=== PATIENT | male | born 1935 | race Caucasian/White ===

== ENCOUNTER → 2020-08-23 08:27 | Outpatient (CLI) | payer MEDICARE, OTHER, SELFPAY ==
--- NOTE | 2020-08-23 08:45 | RAD_ITS ---
CLINICAL HISTORY: PADILLA, S/P ABLATION COMPARISON: None. TECHNIQUE: 1 image(s) of chest sniff test fluoroscopy performed by Physician: Demetri Riojas were submitted for evaluation. FINDINGS: Single spot fluoroscopic radius graph is provided demonstrating cardiac leads median sternotomy and mediastinal clips. The visualized lung bases and upper abdomen are grossly unremarkable. RAD/Chest Sniff Test Fluoro Only IMPRESSION: Single spot fluoroscopic image as above. Please see procedure report for details. Electronically Signed: Tripp Field, at 12:15 EST Tel , Service support ,
== END ==
PROVIDERS: PCP Family Medicine; Referring Provider Internal Medicine Pulmonary Disease; Visit Provider Internal Medicine Pulmonary Disease
DX: R06.00 Dyspnea, unspecified (principal)
CPT/HCPCS: 76000

== ENCOUNTER → 2020-09-01 10:46 | Outpatient (CLI) | payer MEDICARE, OTHER, SELFPAY ==
--- NOTE | 2020-09-01 11:02 | RAD_ITS ---
PROCEDURE: Sniff test. DATE OF EXAMINATION: 09/01/2020. INDICATION: Male, 84 years old. Paralyzed diaphragm. FLUOROSCOPY TIME (if supplied): (17 seconds) minutes/seconds There is paralysis of the left hemidiaphragm. Mild increased markings are seen at the left lung base suggests scarring. RAD/Chest Sniff Test Fluoro Only IMPRESSION: Paralysis of the left hemidiaphragm. Electronically Signed: Brayan Woody, at 12:09 EST , Service support ,
[2020-09-01 11:18] LABS: BNP,B-Type NATRIURETIC PEPTIDE 373.8 pg/mL (0-100)
== END ==
PROVIDERS: PCP Family Medicine; Referring Provider Internal Medicine Pulmonary Disease; Visit Provider Internal Medicine Pulmonary Disease
DX: R06.00 Dyspnea, unspecified (principal)
CPT/HCPCS: 36415; 76000; 83880

== ENCOUNTER → 2020-11-13 09:11 | Outpatient (CLI) | payer MEDICARE, OTHER, SELFPAY ==
--- NOTE | 2020-11-13 09:16 | RAD_ITS ---
STUDY: X-RAY CHEST REASON FOR EXAM: Male, 84 years old. Dyspnea -- hx of pleural effusion TECHNIQUE: PA and lateral views of the chest. COMPARISON: Comparison is made with prior study dated 09/01/2020. FINDINGS: Stable pleural parenchymal changes at the left lung base. Sternal cerclage wires and vascular clips are present from a prior sternotomy and coronary artery bypass graft procedure (CABG). A left-sided dual-chamber pacemaker is seen. Normal mediastinum and rosy. Normal visualized pulmonary arteries. There is atherosclerotic calcification of the aortic arch with tortuosity. There are diffuse degenerative changes of the visualized thoracic spine. Normal visualized ribs, clavicles, and shoulders. There is no demonstrated abnormality of the visualized soft tissue structures of the upper abdomen. RAD/Chest PA and Lateral IMPRESSION: Stable pleural parenchymal changes at the left lung base. Electronically Signed: Brayan Woody MD at 10:27 EST , Service support ,
--- NOTE | 2020-11-13 09:20 | RAD_ITS ---
STUDY: X-RAY CHEST REASON FOR EXAM: Male, 84 years old. Dyspnea -- hx of pleural effusion -- -- LEFT side decubitus TECHNIQUE: Left side decubitus view. COMPARISON: Comparison is made with prior chest radiograph done earlier today. FINDINGS: A left-sided decubitus chest radiograph was obtained. There is blunting of the left costophrenic angle. No evidence of free pleural fluid. RAD/Special CXR (Obl/Decub/A/L) IMPRESSION: Blunting of the left costophrenic angle. No evidence of free pleural fluid. Electronically Signed: Brayan Woody MD at 12:06 EST , Service support ,
--- NOTE | 2020-11-13 09:20 | RAD_ITS ---
STUDY: X-RAY CHEST REASON FOR EXAM: Male, 84 years old. Dyspnea -- hx of pleural effusion -- -- RIGHT side decubitus TECHNIQUE: Right side decubitus. COMPARISON: None. FINDINGS: A [id number] decubitus view was obtained. No evidence of free pleural fluid. RAD/Special CXR (Obl/Decub/A/L) IMPRESSION: No evidence of free pleural fluid. Electronically Signed: Brayan Woody MD at 12:05 EST , Service support ,
[2020-11-13 12:25] LABS: BNP,B-Type NATRIURETIC PEPTIDE 360.9 pg/mL (0-100)
== END ==
PROVIDERS: PCP Family Medicine; Referring Provider Internal Medicine Pulmonary Disease; Visit Provider Internal Medicine Pulmonary Disease
DX: R06.00 Dyspnea, unspecified (principal); I48.91 Unspecified atrial fibrillation; I27.20 Pulmonary hypertension, unspecified
CPT/HCPCS: 36415; 71046; 83880

== ENCOUNTER → 2021-01-08 07:57 | Outpatient (CLI) | payer MEDICARE, OTHER, SELFPAY ==
--- NOTE | 2021-01-08 08:17 | CT_ITS ---
STUDY: CT CHEST WITHOUT CONTRAST REASON FOR EXAM: Male, 85 years old. HX PLEURAL EFFUSION DYSPNEA RADIATION DOSAGE (If Supplied By Facility): CTDIvol = ( 12.82 ) mGy, DLP = ( 483.83 ) mGycm TECHNIQUE: Transaxial imaging was performed without the administration of intravenous contrast material. Individualized dose optimization techniques were used for this CT. COMPARISON: None. FINDINGS: Left subclavian pacemaker. Status post median sternotomy. The lungs are normal. There is no demonstrated pleural abnormality. There is a moderate pericardial effusion. There are calcifications of the coronary arteries. Normal mediastinum. Normal hilar regions. Normal unenhanced pulmonary arteries. Normal aorta arch and descending thoracic aorta. Normal osseous structures. Small amount of ascites surrounding the spleen in the left upper quadrant. CT/Chest without Contrast IMPRESSION: Small amount of ascites surrounding the spleen in the left upper quadrant. No pleural effusion. Electronically Signed: Jean Patel MD at 16:56 EDT Tel , Service support ,
[2021-01-08 08:53] LABS: PSA,Total - Annual Screen 0.04 ng/mL (0.00-4.00)
== END ==
PROVIDERS: PCP Family Medicine; Referring Provider Internal Medicine Pulmonary Disease; Visit Provider Internal Medicine Pulmonary Disease
DX: J90 Pleural effusion, not elsewhere classified (principal); R06.00 Dyspnea, unspecified; Z12.5 Encounter for screening for malignant neoplasm of prostate; I10 Essential (primary) hypertension; I48.91 Unspecified atrial fibrillation
CPT/HCPCS: 36415; 71250; 84153; G0103

== ENCOUNTER 2024-06-14 18:22 | Inpatient (IN) | payer MEDICARE, OTHER, SELFPAY ==
[2024-06-14 17:40] VITALS: BP 92/69; PULSE 80; RESP 18; TEMP 36.3; O2SAT 95
[2024-06-14 18:45] VITALS: BMI 25.5
--- NOTE | 2024-06-14 18:45 | NURSING ---
discussed code status with , pt to be DNRCC. paper signed. placed in Dr Tompkins folder
[2024-06-14 19:50] VITALS: PULSE 86; RESP 18
--- NOTE | 2024-06-14 20:51 | HP.PCM_ITS ---
HPI - General General Date of Admission: 06/14/24 Date of Service: 06/15/24 Chief Complaint: Here for rehabilitation. HPI Narrative MOIRA VILLALOBOS, is a 88 Male who presents with followin06/08/2024 Admit to [facility]. Worsening edema, dyspnea on exertion, orthopnea. Treat for congestive heart failure, consult Palliative care. Lasix 100mg iv given for chf. 06/09/2024 Creatinine 2.53 to 2.32, BNP 11,511. Echo EF 38%. Global LV hypokinesis. Lasix 80mg iv bid for acute HFrEF. 06/10/2024 Lasix 80mg tid for acute HFrEF. Low sodium diet, I's and O's, daily weights. 06/11/2024 Comfortable. Lasix iv for acute HFrEF. Jardiance stopped 2/2 urinary sphincter dysfunction. Plan discharge on Torsemide 100mg bid. 06/12/2024 Feeling well, improved. Lasix iv per cardiology. PT/OT for SNF. 06/13/2024 Lasix 80mg iv q8 for acute HFrEF. Vyndamax for cardiac amyloidosis. Sleep improved, appetite improved. Trazodone, Zyprexa, melatonin for sleep. Lexapro for depression. 06/14/2024 Admit to TCU with debility, here for rehabilitation, strengthening, prior to discharge home with . [facility] Medical History (Updated 06/14/24 @ 21:[address] Alfonso Tompkins MD) History of pacemaker Hypothyroidism Chronic kidney disease, stage 3b Complete heart block Atrial fibrillation Diaphragmatic paralysis Coronary artery disease Localized swelling of both lower legs Acute on chronic HFrEF (heart failure with reduced ejection fraction) Acute respiratory failure with hypoxia Debility Cardiac amyloidosis Home Medications ?Medication ?Instructions ?Recorded ?Last Taken ?Type acetaminophen 500 mg tablet 500 mg PO Q6H PRN fever or pain 06/14/24 Unknown History amiodarone 200 mg tablet 200 mg PO Q24H afib 06/14/24 Unknown History apixaban 2.5 mg tablet (Eliquis) 2.5 mg PO BID afib 06/14/24 Unknown History cholecalciferol (vitamin D3) 25 25 mcg PO DAILY bone health 06/14/24 Unknown History mcg (1,000 unit) capsule coenzyme Q10 200 mg capsule (Co 200 mg PO DAILY joint health 06/14/24 Unknown History Q-10) escitalopram oxalate 10 mg tablet 10 mg PO DAILY depression 06/14/24 Unknown History levothyroxine 125 mcg tablet 125 mcg PO DAILY thyroid 06/14/24 Unknown History magnesium oxide 400 mg PO DAILY suppleme 06/14/24 Unknown History melatonin 3 mg tablet 3 mg PO QHS sleep 06/14/24 Unknown History miconazole 2 % powder-tolnaftate 1 1 ea topical BID.TCU skin 06/14/24 Unknown History % liquid topical kit midodrine 5 mg tablet 5 mg PO TID syncope/BP 06/14/24 Unknown History nitroglycerin 0.4 mg sublingual 0.4 mg sublingual Q5M PRN angina 06/14/24 Unknown History tablet (Nitrostat) olanzapine 5 mg tablet 5 mg PO QHS depression 06/14/24 Unknown History potassium chloride 10 mEq 10 meq PO DAILY supplement 06/14/24 Unknown History tablet,extended release (Klor-Con) tafamidis 61 mg capsule (Vyndamax) 61 mg PO DAILY cardiomyopathy 06/14/24 Unknown History tamsulosin 0.4 mg capsule (Flomax) 0.4 mg PO DAILY prostate 06/14/24 Unknown History torsemide 100 mg tablet 100 mg PO BID heart 06/14/24 Unknown History trazodone 100 mg tablet 100 mg PO QHS sleep 06/14/24 Unknown History Allergy/AdvReac Type Severity Reaction Status Date / Time hydromorphone (From Dilaudid) Allergy Severe Other Verified 06/14/24 18:52 ketorolac Allergy Severe Anaphylaxis Verified 06/14/24 18:52 Family History (Updated 06/14/24 @ 20:[address] Alfonso Tompkins MD) Mother Myocardial infarction Lung cancer Brother CVA (cerebral vascular accident) Diabetes CAD (coronary artery disease) Prostate cancer Surgical History (Updated 06/14/24 @ 21:[address] Alfonso Tompkins MD) History of implantation of artificial sphincter History of coronary artery bypass graft x 3 Social History (Updated 06/14/24 @ 21:[address] Alfonso Tompkins MD) household members: spouse Smoking Status: Never smoker alcohol intake: current alcohol intake frequency: 0-2 drinks per day Alcohol type: beer and wine substance use type: does not use ROS Constitutional Constitutional: Reports weakness; Denies chills, fever(s) or weight gain ENT HEENT: Denies headache(s), nasal congestion or nasal discharge Cardiovascular Cardiovascular: Denies chest pain or palpitations Respiratory/Chest Respiratory/Chest: Denies cough, excessive phlegm production or shortness of breath with exertion Gastrointestinal Gastrointestinal: Denies abdominal pain, nausea or vomiting Genitourinary Genitourinary: Denies dysuria Musculoskeletal Musculoskeletal: Denies joint pain or joint swelling Integumentary Integumentary: Denies rash or wounds Neurologic Neurologic: Reports confusion; Denies focal weakness, numbness or tingling Psychiatric Psychiatric: Denies anxiety, auditory hallucinations, depression, homicidal ideation or suicidal ideation Vital Signs Vital Signs Vital Signs: 06/14/24 17:40 06/14/24 19:50 Temperature 97.4 F L Temperature Source Temporal Pulse Rate 80 86 Pulse Rhythm Regular Pulse Strength Normal (2+) Respiratory Rate 18 18 Respiratory Effort Normal Non-Labored Respiratory Depth Normal Respiratory Pattern Normal Blood Pressure 92/69 Blood Pressure Mean 76 Blood Pressure Source Monitor Blood Pressure Position Semi-Fowlers Blood Pressure Location Right Arm Pulse Ox 95 Oxygen Delivery Method Room Air Room Air Physical Exam Const alert General Appearance: cooperative HEENT normocephalic Eyes PERRL and EOMs intact bilaterally Neck supple, no JVD and no carotid bruits Resp normal respiratory effort, normal air movement and clear to auscultation bilaterally Cardio regular rate and regular rhythm GI normal to inspection, nondistended, normoactive bowel sounds, non-tender and non-distended Extremity normal capillary refill General Extremity: Negative for edema Skin no rashes or lesions noted General Skin Exam: no breakdown Psych affect normal Appearance: appropriate Results Lab / Micro Data 06/15/24 05:12 06/15/24 05:12 Assessment & Plan Assessment/Plan (1) Debility: (2) Acute respiratory failure with hypoxia: (3) Acute on chronic HFrEF (heart failure with reduced ejection fraction): (4) Localized swelling of both lower legs: (5) Cardiac amyloidosis: (6) Coronary artery disease: (7) Diaphragmatic paralysis: (8) Atrial fibrillation: (9) Complete heart block: (10) Chronic kidney disease, stage 3b: (11) Hypothyroidism: PLAN: Plan 88 year old male with below past medical history hospitalized for acute respiratory failure with hypoxia 2/2 acute on chronic hfref, complicated by acute kidney injury, admitted to TCU with debility, here for rehabilitation, strengthening, prior to discharge home with . * Debility - PT/OT. * Cognition - ST. * Pain - Tylenol 1000mg q6 prn pain (1-10). * Bowel - senna/colace 1 tablet bid, Magnesium citrate 300ml po daily prn. * Adult immunization - Administer pneumonia vaccine, covid vaccine, flu vaccine as appropriate. * DVT prophylaxis - Eliquis 2.5mg bid. * Atrial fibrillation - Amiodarone 200mg daily, Eliquis 2.5mg bid. * Vitamin D deficiency - D3 25mcg daily. * Depression - Lexapro 10mg daily. * Hypothyroidism - Levothyroxine 125mcg daily. * Hypomagnesemia - Magnesium chloride 128mg daily. * Insomnia - Melatonin 3mg qhs, Zyprexa 5mg qhs, Trazodone 100mg qhs, stable chronic residential use, GDR not recommended. * Orthostatic hypotension - Midodrine 5mg tidcm. * Coronary artery disease - NTG 0.4mg sl q5m prn. * Hypokalemia - KCL 10meq daily. * Cardiac amyloidosis - Vyndamax 61mg daily. * BPH - Tamsulosin 0.4mg daily. * HFrEF - Torsemide 100mg bid.
[2024-06-14] MEDS: OLANZapine 5 MG/TAB TAB.RAPDIS PO (22:31)
[2024-06-14] MEDS: APIXABAN 2.5 MG TABLET (WCH) PO (22:31)
[2024-06-14] MEDS: Senna/Docusate Sodium 1 Tablet PO (22:31)
[2024-06-14] MEDS: traZODone 100 MG Tablet PO (22:31)
[2024-06-14] MEDS: MELATONIN 3 MG TABLET PO (22:31)
[2024-06-14] MEDS: Midodrine HCl 5 MG Tablet PO (22:32)
[2024-06-14 22:35] VITALS: BP 102/68; PULSE 80
[2024-06-14] MEDS: Acetaminophen 500 MG Tablet 1000 MG PO (22:41)
[2024-06-15 06:05] LABS: Absolute Lymphocyte Count 0.67 X10^3/uL (0.83-4.51); Absolute Neutrophil Count 6.3 X10^3/uL (2.0-7.7); Basophil# 0.04 X10^3/uL; Basophil% 0.5 % (0-1); Eosinophil# 0.07 X10^3/uL; Eosinophils% 0.9 % (0-5); Hemoglobin 11.7 g/dL (13.0-16.5); Lymphocyte # 0.67 X10^3/ul (0.83-4.51); Lymphocyte % 8.5 % (19-41); Mean Corp Hgb Conc 32.5 g/dL (32-36); Mean Corpuscular Hgb 33.2 pg (27.0-32.0); Mean Corpuscular Volume 102.3 fL (80-94); Monocyte# 0.56 X10^3/uL; Monocyte% 7.1 % (0-10); NRBC Flagged by Analyzer 0 % (0-5); Neutrophil # 6.33 X10^3/uL (2.7-7.7); Neutrophil % 80.7 % (47-70); POSITIVE COUNT YES; POSITIVE MORPHOLOGY YES; Platelet Count 98 K/mm3 (150-450); RBC Distribution Width CV 17.9 % (11.6-14.6); RBC Distribution Width SD 67.4 fl (35.1-43.9); Red Blood Count 3.52 M/mm3 (4.6-6.2); White Blood Count 7.9 K/mm3 (4.4-11.0)
[2024-06-15 06:07] LABS: Differential Indicated SCAN CRITERIA MET
[2024-06-15] MEDS: Levothyroxine 125 MCG Tablet PO (06:14)
[2024-06-15 06:34] LABS: Anion Gap 8 (5-15); BUN 59 mg/dL (7-18); BUN/Creat Ratio 28.5 RATIO (10-20); Calcium,Total 8.7 mg/dL (8.5-10.1); Chloride 99 mmol/L (98-107); Creatinine, Serum 2.07 mg/dL (0.70-1.30); EST Glomerular Filtration Rate 32 mL/min (>60); Est Glom Filt Rate - Afr Amer 39 mL/min (>60); Glucose 149 mg/dL (74-106); Potassium 3.9 mmol/L (3.5-5.1); Sodium Level 133 mmol/L (136-145)
[2024-06-15] MEDS: Potassium Chloride Oral Tablet 10 MEQ PO (07:51)
[2024-06-15] MEDS: Midodrine HCl 5 MG Tablet PO ×3 (07:51→17:20)
[2024-06-15] MEDS: Magnesium Chloride 64 MG Delay Rel.Tablet 128 MG PO (07:52)
[2024-06-15] MEDS: APIXABAN 2.5 MG TABLET (WCH) PO ×2 (07:52→21:52)
[2024-06-15] MEDS: Amiodarone 200 MG Tablet PO (07:52)
[2024-06-15] MEDS: Escitalopram Oxalate 10 MG Tablet PO (07:52)
[2024-06-15] MEDS: Senna/Docusate Sodium 1 Tablet PO ×2 (07:53→21:52)
[2024-06-15] MEDS: Cholecalciferol (VIT D3) 25 MCG TABLET (1,000 UNITS) PO (07:53)
[2024-06-15] MEDS: Magnesium Citrate 300 ML PO (07:54)
[2024-06-15 08:31] LABS: Differential Comment SCANNED
[2024-06-15 08:32] LABS: Anisocytosis 2+; Macrocytosis 1+; Microcytosis 1+; Platelet Estimate SLT DEC (ADEQ)
[2024-06-15 08:38] VITALS: BMI 25.5
[2024-06-15] MEDS: Tuberculin,Purif.prot.deriv. 50 TU/ML Vial 0.1 ML ID (10:30)
[2024-06-15 12:49] LABS: Mucous, Urine 0 SEEN /hpf (<or=2+); Red Blood Cells-Urine 0 SEEN /hpf (0-5)
[2024-06-15 13:04] LABS: Color, Urine Yellow (Yellow); Glucose, Dipstick Normal (Normal); Ketone-Dipstick Negative (Negative); Leukocyte Esterase-Dipstick 25 /ul (Negative); Nitrite-Dipstick Negative (Negative); Occult Blood-Urine Negative /ul (Negative); Protein-Dipstick 30 mg/dl (Negative); Specific Gravity, Urine 1.015 (1.002-1.030); Urine Bilirubin Dipstick Negative (Negative); Urine Clarity Clear (Clear); Urine Urobilinogen Normal (Normal)
[2024-06-15 13:07] VITALS: BP 106/64; PULSE 76; RESP 16; TEMP 36.4; O2SAT 97
[2024-06-15 13:24] LABS: Bacteria 1+ /hpf (None Seen); Squamous Epithelial Cells - UA 0-5 SEEN /hpf (0-5); White Blood Cells 0-5 SEEN /hpf (0-5)
[2024-06-15 13:33] VITALS: BP 105/63; PULSE 80
--- NOTE | 2024-06-15 13:59 | CASEMGMT ---
Social Work SW attempted to meet with pt but pt agitated, wincing, and preferred not to be asked questions. SW phoned and will be arriving shortly. SW met with without pt present. shared pt's medical history and PLOF. Prior to - February, pt was mod I, no AD, no cognitive issues. Per , mid-February, pt became weaker, medical decline, and April 01, drove pt to [facility] Main ER for fluid retention, which began his medical decline, delirium with each change in environment. explained pt was golfing 2-3x/week about two years ago, but when he was struggling to play, d/t his competitiveness, pt sold his golf clubs. Which stated she felt was a mistake. Pt started to decline physically, decreased activity levels and increased in SOB. pt became severely depressed, which pt admitted, per . PCP started pt on antidepressant. is hopeful pt will participate in therapy, begin to improve, and delirium will resolve. Though, is also realistic that pt may not recover, and hospice would be appropriate. At this current LOF, stated she cannot care for pt at home, and pt would need SNF placement. prefers [facility], but did not have beds available at the time of DC, though, stated she is very happy pt admitted to TCU as it is evident [we] provide great care. SW explained this worker will continue to follow for support and discharge planning assistance. appreciative. Betzy Amezquita, ROSE SALINASW
--- NOTE | 2024-06-15 14:21 | CASEMGMT ---
Social Work SW requested provide copies of advanced directives Betzy Amezquita, [employer] PATHOLOGY COLLECTOR
--- NOTE | 2024-06-15 15:17 | NURSING ---
Addendum entered by Carina Brito 06/15/24 15:47: Met resistance when trying to insert enema tubing, resident clenching up and unable to tolerate more than a small amount of enema being administered. Had to stop and position him for comfort. Will update MD. Original Note: Patient up and down to [facility] multiple times during the day, keeps saying he needs to have BM. Drank some mag citrate but only had small BM, no relief. Updated Dr. Tompkins, order for SSE.
--- NOTE | 2024-06-15 16:24 | PCM.PN.DRR ---
Documented by User: William Goodwin 06/15/24 16:52 TCU RX Drug Regimen Review Subjective/Objective Subjective/Objective: Subjective: TCU admission note. 88 year old male with below past medical history hospitalized for acute respiratory failure with hypoxia 2/2 acute on chronic hfref, complicated by acute kidney injury, admitted to TCU with debility, here for rehabilitation, strengthening, prior to discharge home with . Objective: Allergies hydromorphone (From Dilaudid) Allergy (Severe, Verified 06/14/24 18:52) Other tachycardia, diaphoresis, flushing, intense anxiety ketorolac Allergy (Severe, Verified 06/14/24 18:52) Anaphylaxis Current Medications Generic Name Dose Route Start Last Admin Trade Name Freq PRN Reason Stop Dose Admin Acetaminophen 1,000 mg 06/14/24 21:11 06/14/24 22:41 Acetaminophen 500 Mg Tablet PO 1,000 mg Q6H PRN PRN Administration Pain Score 1-10 Amiodarone HCl 200 mg 06/15/24 10:00 06/15/24 07:52 Amiodarone 200 Mg Tablet PO 200 mg DAILY SAMMY Administration Apixaban 2.5 mg 06/14/24 22:00 06/15/24 07:52 Apixaban 2.5 Mg Tablet (Wch) PO 2.5 mg BID SAMMY Administration Cholecalciferol 25 mcg 06/15/24 10:00 06/15/24 07:53 Cholecalciferol (Vit D3) 25 Mcg Tablet (1,000 Units) PO 25 mcg DAILY SAMMY Administration Escitalopram Oxalate 10 mg 06/15/24 10:00 06/15/24 07:52 Escitalopram Oxalate 10 Mg Tablet PO 10 mg DAILY SAMMY Administration Levothyroxine Sodium 125 mcg 06/15/24 06:00 06/15/24 06:14 Levothyroxine 125 Mcg Tablet PO 125 mcg DAILY@0600 SAMMY Administration Magnesium Chloride 128 mg 06/15/24 10:00 06/15/24 07:52 Magnesium Chloride 64 Mg Delay Rel.Tablet PO 128 mg DAILY SAMMY Administration Magnesium Citrate 300 ml 06/14/24 21:11 06/15/24 07:54 Magnesium Citrate 300 Ml PO 300 ml DAILY PRN Administration CONSTIPATION Melatonin 3 mg 06/14/24 22:00 06/14/24 22:31 Melatonin 3 Mg Tablet PO 3 mg QHS SAMMY Administration Midodrine 5 mg 06/14/24 22:00 06/15/24 13:29 Midodrine Hcl 5 Mg Tablet PO 5 mg TIDCM [facility] Administration Nitroglycerin 0.4 mg 06/14/24 19:20 Nitroglycerin (Inpatient Use) 0.4 Mg Tab.Subl SL Q5M PRN CARDIAC/CHEST PAIN Non-Formulary Medication 1 each 06/14/24 22:00 Miconazole-Tolnaftate TOPICAL BID.TCU [facility] Non-Formulary Medication 100 mg 06/14/24 22:00 Torsemide PO BID SAMMY Olanzapine 5 mg 06/14/24 22:00 06/14/24 22:31 Olanzapine 5 Mg/Tab Tab.Rapdis PO 5 mg QHS [facility] Administration Potassium Chloride 10 meq 06/15/24 08:00 06/15/24 07:51 Potassium Chloride Oral Tablet 10 Meq PO 10 meq DAILYCM [facility] Administration Senna/Docusate Sodium 1 tablet 06/14/24 22:00 06/15/24 07:53 Senna/Docusate Sodium 1 Tablet PO 1 tablet BID [facility] Administration Tamsulosin HCl 0.4 mg 06/15/24 17:30 Tamsulosin Hcl 0.4 Mg Capsule PO DAILY@1730 [facility] Trazodone HCl 100 mg 06/14/24 22:00 06/14/24 22:31 Trazodone 100 Mg Tablet PO 100 mg QHS [facility] Administration Tuberculin PPD 0.1 ml 06/22/24 10:00 Tuberculin,Purif.Prot.Deriv. 50 Tu/Ml Vial ID 06/22/24 10:01 X1 ONE Problem List Hypothyroidism (Acute) Chronic kidney disease, stage 3b (Acute) Complete heart block (Acute) Atrial fibrillation (Acute) Diaphragmatic paralysis (Acute) Coronary artery disease (Acute) Cardiac amyloidosis (Acute) Localized swelling of both lower legs (Acute) Acute on chronic HFrEF (heart failure with reduced ejection fraction) (Chronic) Acute respiratory failure with hypoxia (Acute) Debility (Acute) Vital Signs Temp Pulse Resp BP Pulse Ox O2 Del Method 97.6 F L 80 16 105/63 97 Room Air 06/15/24 13:07 06/15/24 13:33 06/15/24 13:07 06/15/24 13:33 06/15/24 13:07 06/15/24 13:07 Oxygen Delivery Method Room Air Weight: 83.189 kg Body Mass Index (BMI) 25.5 Sodium 133 mmol/L (136-145) L 06/15/24 05:12 Potassium 3.9 mmol/L (3.5-5.1) 06/15/24 05:12 Chloride 99 mmol/L (98-107) 06/15/24 05:12 Carbon Dioxide 26.0 mmol/L (21.0-32.0) 06/15/24 05:12 Anion Gap 8 (5-15) 06/15/24 05:12 BUN 59 mg/dL (7-18) H 06/15/24 05:12 Creatinine 2.07 mg/dL (0.70-1.30) H 06/15/24 05:12 Est GFR (MDRD) Af Amer 39 mL/min (>60) L 06/15/24 05:12 Est GFR (MDRD) Non-Af 32 mL/min (>60) L 06/15/24 05:12 BUN/Creatinine Ratio 28.5 RATIO (10-20) H 06/15/24 05:12 Glucose 149 mg/dL (74-106) H 06/15/24 05:12 Assessment/Plan: 1. Pain: acetaminophen 1000 mg PO Q6H PRN pain. The patient has used 1 PRN dose of acetaminophen so far this admission. Please continue to monitor pain levels, PRN medication usage and LFTs (no recent LFTs documented). 2. Bowel: senna/docusate 1 tablet PO BID, magnesium citrate 300 mL PO daily PRN constipation. The patient has not required any PRN magnesium citrate so far this admission and the patient's last bowel movement is documented as 06/10/24. Please continue to monitor for PRN medication administration, bowel movements, constipation and diarrhea. 3. Atrial fibrillation: amiodarone 200 mg PO daily, apixaban 2.5 mg PO BID. Please continue to monitor for s/s of stroke, for palpitations, for serum creatinine (serum creatinine = 2.07 mg/dL on 06/15/24), for s/s of bleeding/excessive bruising, heart rates (recent range = 76-86 beats/min), LFTs (no recent LFTs documented), for shortness of breath, and TSH (no recent TSH documented). 4. Orthostatic hypotension: midodrine 5 mg PO TID with meals. Please continue to monitor for s/s of orthostasis, and blood pressures (recent range = 92-106/63-69 mmHg), and heart rates (recent range = 76-86 beats/min). 5. Hypothyroidism: levothyroxine 125 mcg PO daily. Please continue to monitor for s/s of hypo/hyperthyroidism, and thyroid hormone levels (no recent TSH/T4 documented). Please consider ordering a TSH/T4 to assess the patients thyroid hormone status. 6. Cardiac amyloidosis: tafamidis 61 mg PO daily. Please continue to monitor heart health. 7. BPH: tamsulosin 0.4 mg PO daily. Please continue to monitor for s/s of orthostasis, for urinary retention, and urine stream. 8. HFrEF: torsemide 100 mg PO BID. Please continue to monitor for s/s of heart failure exacerbation such as shortness of breath and edema, renal function (serum creatinine = 2.07 mg/dL with creatinine clearance ~ 29.5 mL/min on 06/15/24), sodium levels (Na = 133 mmol/L on 06/15/24), potassium levels (K = 3.9 mmol/L on 06/15/24), and calcium levels (Ca = 8.7 mg/dL on 06/15/24). 9. Coronary artery disease: nitroglycerin 0.4 mg SL Q5M PRN chest pain. The patient has not required any PRN doses of nitroglycerin so far this admission. Please continue to monitor for chest pain, and for PRN nitroglycerin administration. 10. Hypokalemia: potassium chloride 10 mEq PO daily. Please continue to monitor potassium levels (K = 3.9 mmol/L on 06/15/24), and for GI distress with potassium chloride administration. 11. Vitamin D deficiency: cholecalciferol 25 mcg PO daily. Please continue to monitor for s/s of vitamin D deficiency and vitamin D levels (no recent vitamin D level documented). Please consider ordering a vitamin D level to assess repletion status if clinically indicated. 12. Hypomagnesemia: magnesium chloride 128 mg PO daily. Please continue to monitor magnesium levels (no recent magnesium levels documented). Please consider ordering a magnesium level if clinically indicated. Assessment/Plan for indications treated with psychotropic medications: 1. Depression: escitalopram 10 mg PO daily. This appears to be stable chronic long-term use GDR not recommended. Please continue to monitor for depression, for SI, for s/s of serotonin syndrome, sodium levels (Na = 133 mmol/L on 06/15/24), for diarrhea, nausea, drowsiness, and headache. 2. Insomnia: melatonin 3 mg PO QHS, olanzapine 5 mg PO QHS, trazodone 100 mg PO QHS. Please see provider note regarding stable chronic long-term use GDR not recommended. Please continue to monitor for insomnia, drowsiness, for anticholinergic side effect such as dry mouth, dry eyes, urinary retention, and constipation, for orthostatic hypotension, s/s of serotonin syndrome, nausea/vomiting, and dizziness. Medical chart and medication regimen reviewed. The following medication irregularities or issues were identified: 1. Hypothyroidism: levothyroxine 125 mcg PO daily. Please consider ordering a TSH/T4 to assess the patients thyroid hormone status. 2. Vitamin D deficiency: cholecalciferol 25 mcg PO daily. Please consider ordering a vitamin D level to assess repletion status if clinically indicated. 3. Hypomagnesemia: magnesium chloride 128 mg PO daily. Please consider ordering a magnesium level if clinically indicated. 4. Toenail health: Miconazole-tolnaftate kit. This is a non-formulary medication and the patient may not provide. Please discontinue this medication. Date Date of Note:: 06/15/24 Documented by User: Dr. Alfonso Tompkins MD 06/15/24 17:17 TCU RX Drug Regimen Review Provider Comments Provider responsibility Provider Comments to Recommendations by Pharmacy: Agree
--- NOTE | 2024-06-15 17:08 | NURSING ---
Patient having increased frequency and retention. Dr. Tompkins made aware and order for UA C&S via clean catch. Collected this AM. Patient constipated and having abdominal discomfort. Magnesium citrate administered and not effective by this afternoon and patient very uncomfortable. Dr. Tompkins made aware and NO for soap suds enema, but patient was not able to hold enema. Tonight, patient did have extra large loose BM. Dr. Tompkins made aware.
[2024-06-15] MEDS: TAFAMIDIS 61 MG CAPSULE PO (17:19)
[2024-06-15] MEDS: Tamsulosin HCl 0.4 MG Capsule PO (17:20)
[2024-06-15 17:25] VITALS: BP 107/66
[2024-06-15] MEDS: traZODone 100 MG Tablet PO (21:52)
[2024-06-15] MEDS: OLANZapine 5 MG/TAB TAB.RAPDIS PO (21:52)
[2024-06-15] MEDS: MELATONIN 3 MG TABLET PO (21:53)
[2024-06-15] MEDS: Menthol/Lanolin/Calamine/Znox 113 GM Tube 1 APPLIC TOPICAL (21:57)
[2024-06-16] MEDS: Acetaminophen 500 MG Tablet 1000 MG PO ×3 (02:53→23:58)
[2024-06-16] MEDS: Carbidopa/Levodopa 10/100 Tablet PO ×3 (05:46→16:54)
[2024-06-16] MEDS: Levothyroxine 125 MCG Tablet PO (05:46)
[2024-06-16] MEDS: Midodrine HCl 5 MG Tablet PO ×3 (07:56→16:54)
[2024-06-16] MEDS: Potassium Chloride Oral Tablet 10 MEQ PO (07:56)
[2024-06-16 07:59] VITALS: BP 89/56
[2024-06-16] MEDS: Menthol/Lanolin/Calamine/Znox 113 GM Tube 1 APPLIC TOPICAL ×2 (07:59→21:01)
[2024-06-16 10:00] VITALS: BMI 25.5
[2024-06-16] MEDS: Magnesium Chloride 64 MG Delay Rel.Tablet 128 MG PO (10:46)
[2024-06-16] MEDS: Escitalopram Oxalate 10 MG Tablet PO (10:46)
[2024-06-16] MEDS: Amiodarone 200 MG Tablet PO (10:46)
[2024-06-16] MEDS: APIXABAN 2.5 MG TABLET (WCH) PO ×2 (10:46→20:51)
[2024-06-16] MEDS: Cholecalciferol (VIT D3) 25 MCG TABLET (1,000 UNITS) PO (10:46)
[2024-06-16] MEDS: TAFAMIDIS 61 MG CAPSULE PO (10:48)
[2024-06-16 10:54] VITALS: BP 86/61
[2024-06-16 11:05] VITALS: PULSE 82; RESP 16; TEMP 35.6; O2SAT 95
--- NOTE | 2024-06-16 11:43 | NURSING ---
Senior Animal Trainer Note; Activity Asset: Complete
[2024-06-16 13:00] VITALS: BP 120/60
--- NOTE | 2024-06-16 13:00 | NURSING ---
Dr. Tompkins aware of BP readings and demadex will be held.
--- NOTE | 2024-06-16 15:02 | NURSING ---
Discussed follow-up appts with . She would like nephrology follow-up on 06/28 cancelled as resident would be hard to transport and labs are being monitored here. RN cancelled appt. Discussed palliative, she mentioned maybe wanting [facility] palliative. Updated [facility] palliative does have a referral to follow for palliative if resident/ decides to go with them.
--- NOTE | 2024-06-16 15:53 | CASEMGMT ---
Addendum entered by Betzy Amezquita 06/16/24 16:24: Received return phone call from [facility] stating they do not service [facility], but do services [place], where pt resides. It was agreed between this worker and intake that once a discharge disposition is known, if pt will be in [place], to place new referral. But if pt remains in [place], they cannot provide services. SW phoned to update on above. is aware and understanding to plan. Original Note: Social Work Received communication from nursing that is requesting to transfer palliative care companies from [facility] to [facility]. SW phoned [facility] to place new referral. Faxed information. WR will contact CC to get medical records and initial Drs order. WR to contact to schedule visit. ROSE KelleyW
[2024-06-16] MEDS: Tamsulosin HCl 0.4 MG Capsule PO (16:54)
[2024-06-16] MEDS: Torsemide 100 MG Tablet PO (20:51)
[2024-06-16] MEDS: traZODone 100 MG Tablet PO (20:51)
[2024-06-16] MEDS: MELATONIN 3 MG TABLET PO (20:52)
[2024-06-16] MEDS: Senna/Docusate Sodium 1 Tablet PO (20:52)
[2024-06-16] MEDS: OLANZapine 5 MG/TAB TAB.RAPDIS PO (20:52)
[2024-06-16] MEDS: Bisacodyl 10 MG Suppository RC (20:57)
[2024-06-17] MEDS: Carbidopa/Levodopa 10/100 Tablet PO ×3 (06:07→16:41)
[2024-06-17] MEDS: Levothyroxine 125 MCG Tablet PO (06:09)
--- NOTE | 2024-06-17 07:42 | RAD_ITS ---
STUDY: X-RAY - ABDOMEN/PELVIS REASON FOR EXAM: Male, 88 years old. Constipation. TECHNIQUE: Single AP view of the abdomen / pelvis. COMPARISON: None. FINDINGS: There is a moderate amount of colonic fecal material. Surgical clips are seen in the pelvis. There is a 4.4 cm x 4.5 cm rounded density projected over the upper midline of the pelvis. This may represent a penile pump. The visualized liver, spleen and kidneys are grossly normal in size and morphology. Normal soft tissue structures. There are diffuse degenerative changes of the visualized lumbar spine. Bilateral total hip replacement. RAD/Abdomen Single View IMPRESSION: Moderate amount of fecal material is seen in the colon. Electronically Signed: Brayan Wodoy MD at 12:36 EDT ,
[2024-06-17] MEDS: Escitalopram Oxalate 10 MG Tablet PO (09:10)
[2024-06-17] MEDS: Midodrine HCl 5 MG Tablet PO ×3 (09:10→16:41)
[2024-06-17] MEDS: Potassium Chloride Oral Tablet 10 MEQ PO (09:10)
[2024-06-17] MEDS: Senna/Docusate Sodium 1 Tablet PO (09:10)
[2024-06-17] MEDS: APIXABAN 2.5 MG TABLET (WCH) PO ×2 (09:10→20:33)
[2024-06-17] MEDS: Cholecalciferol (VIT D3) 25 MCG TABLET (1,000 UNITS) PO (09:11)
[2024-06-17] MEDS: Magnesium Chloride 64 MG Delay Rel.Tablet 128 MG PO (09:11)
[2024-06-17] MEDS: Menthol/Lanolin/Calamine/Znox 113 GM Tube 1 APPLIC TOPICAL ×2 (09:12→20:34)
[2024-06-17] MEDS: Amiodarone 200 MG Tablet PO (09:12)
[2024-06-17 09:15] VITALS: BP 96/63; PULSE 82; RESP 18; TEMP 35.8; O2SAT 94
[2024-06-17] MEDS: Torsemide 100 MG Tablet PO ×2 (09:17→20:33)
[2024-06-17] MEDS: TAFAMIDIS 61 MG CAPSULE PO (09:18)
[2024-06-17] MEDS: Acetaminophen 500 MG Tablet 1000 MG PO ×2 (09:24→16:41)
[2024-06-17] MEDS: Fleet Enema 133 ML RC (09:33)
--- NOTE | 2024-06-17 11:26 | SP.MBSS_ITS ---
Modified Barium Swallow Patient Information Study Date: 06/23/24 Study Time: 10:30 Direct Billable Minutes: 150 Total Minutes procedure & reportin Diagnosis: J96.01 - Acute respiratory failure with hypoxia Referring Physician: Alfonso Tompkins Chi Reason for Referral: Objectively assess swallow function, assess risk for aspiration, and determine recommendations for least restrictive diet textures and compensatory strategies to improve safety of swallow. Medical History: 88 year old male with past medical history re: DVT prophylaxis, atrial fibrillation, vitamin D deficiency, depression, hypothyroidism, hypomagnesemia, insomnia, orthostatic hypotension, CAD, hypokalemia, cardiac amyloidosis, BPH, HFrEF hospitalized for acute respiratory failure with hypoxia 2/2 acute on chronic hfref, complicated by acute kidney injury, admitted to TCU with debility, here for rehabilitation, strengthening, prior to discharge home with . ST consulted for swallowing difficulty, coughing w/ PO intake observed by nursing staff. Participated in Bedside Swallow Evaluation where he continued to showed s/sx of aspiration warranting instrumental swallow study. Current Diet Ordered: Regular; Thin Liquids Mental Status: Impaired (Pt. has had multiple hospitalizations since February 2024 which resulted in hospital delirium.) Respiratory Status: Oxygenating on Room Air Penetration-Aspiration Scale Penetration-Aspiration Scale: OBJECTIVE ASSESSMENT OF SWALLOW FUNCTION (QUANTITATIVE ? PER TRIAL): PENETRATION / ASPIRATION SCALE (JIMENEZ): 1 = does not enter airway 2 = enters airway/above vocal folds/ejected 3 = enters airway/above vocal folds/not ejected 4 = enters airway/contacts vocal folds/ejected 5 = enters airway/contacts vocal folds/not ejected 6 = enters airway/below vocal folds/ejected 7 = enters airway/below vocal folds/not ejected despite effort 8 = enters airway/below vocal folds/no effort VIDEOFLOROSCOPIC SCALE SCORE (JIMENEZ): Grade I = aspiration of material that has penetrated into the laryngeal vestibule, intact cough reflex Grade II = aspiration < 10 % of the bolus, intact cough reflex Grade III = aspiration of < 10 % of the bolus, reduced cough reflex or aspiration of > 10 % of the bolus, intact cough reflex Grade IV = aspiration of > 10 % of the bolus, reduced cough reflex Penetration-Aspiration Scale Score Thin Liquid via teaspoon: Result: 3= enters airways/above vocal folds/not ejected Thin Liquid via teaspoon Trial 2: Result: 3= enters airways/above vocal folds/not ejected Thin Liquid via small single sip: cup: Result: 1= does not enter airway Thin Liquid via small single sip: cup Trial 2: Result: 2= enter airway/above vocal folds/ejected Margaret Thick Liquid via small single sip: cup: Result: 1= does not enter airway Honey Thick Liquid via small single sip: cup: Result: 1= does not enter airway Pudding: Result: 1= does not enter airway Cookie: Result: 1= does not enter airway Thin Liquid via sequential sips: cup: Result: 1= does not enter airway Thin Liquid via single sip: straw: Result: 2= enter airway/above vocal folds/ejected Oral Phase Labial Seal: No Labial Escape Tongue Control During Bolus Hold: Posterior escape of greater than half of bolus Bolus Preparation/Mastication: Disorganized chewing/mashing with solid pieces of bolus unchewed Bolus Transport/Lingual Motion: Slowed tongue motion Oral Residue: Residue collection on oral structures Pharyngeal Phase Initiation of Pharyngeal Swallow: Bolus head in pyriforms Soft Palate Elevation: No bolus between soft palate and pharyngeal wall Laryngeal Elevation: Partial superior movement thyroid cart/partial apprx aryt- epig petiole Anterior Hyoid Excursion: Partial anterior movement Epiglottic Movement: No inversion (Partial inversion) Laryngeal Vestibule Closure at Height of Swallow: Incomplete; narrow column of air/contrast in laryngeal vestibule Pharyngeal Stripping Wave: Present - diminished Pharyngoesophageal Segment Opening: Parital distension and partial duration; parital obstruction of flow Tongue Base Retraction: Wide column of contrast between tongue base & post. p haryngeal wall Pharyngeal Residue: Majority of contrast within or on pharyngeal structures Esophageal Phase Esophageal Clearance: Complete clearance Diagnosis/Impression Diagnosis: mild to moderate oropharyngeal dysphagia R13.12 Impression: Patient presents w/ mild to moderate oropharyngeal dysphagia. ORAL PHASE PRIMARILY MARKED BY... - poor bolus control w/ premature spillage to the vallecula and pyriforms prior to swallow onset. - slowed mastication and delayed AP transit of cookie. - poor oral clearance. PHARYNGEAL PHASE PRIMARILY MARKED BY... - delayed pharyngeal onset timing resulting in suboptimal bolus location upon swallow onset. - reduced closure of airway attributed to reduced anterior hyoid excursion and absent epiglottic inversion which contributed to laryngeal penetration w/ thin liquids via teaspoon, thin liquids via cup and thin liquids via straw. - no aspiration was observed throughout the study. - poor pharyngeal motility attributed to wide tongue base, reduced pharyngeal stripping wave and reduced UES opening which resulted in significant pharyngeal residues in the vallecula and pyriforms after the swallow. FARM CONTRACTOR cued to double swallow to assess if extra dry swallow decreased residues. Post prandial pe netration noted of residues in the vallecula. Pt. is at risk for post-prandial penetration/ aspiration. - large piece of cookie present in the vallecula after the swallow. Double swallow and chin tuck not effective in clearing. Liquid wash was most effective in decreasing residues. Pt. would benefit from alternating bite/sip. Recommendations Diet: Regular Textures and Thin Liquids Compensatory Strategies: Small Bites, Small Sips, No Straws, Slow Rate, Feed only when alert, Multiple Swallows, Alternate bites/solids and sips/liquids, Sitting upright, Remain sitting upright for 30 minutes after PO intake, Minimize/decrease distractions and Assist with verbal cues to use recommended strategies Supervision: 1:1 Close Supervision Recommend Repeat Modified Barium Swallow: TBD Need for Skilled Speech Therapy Services: Yes Comment: Patient requires skilled speech-language intervention targeting continued diet texture management, training and implementation of recommended compensatory strategies and training and implementation of recommended oropharyngeal strengthening exercises. Education Completed: 1. Described result of evaluation., 2. Pt understands evaluation & agrees with goals and treatment plan. and 4. Family/caregivers understand evaluation & agree w/ goals & tx plan. Status Active ST Patient: Active Contact Information [facility] Speech Therapy:: Nerissa House M.A. [facility]-FARM CONTRACTOR Speech-Language Pathologist [facility] [address] [place] [address] [email or web address] [phone]
[2024-06-17 13:32] VITALS: BP 105/66; PULSE 79
[2024-06-17] MEDS: Tamsulosin HCl 0.4 MG Capsule PO (16:41)
[2024-06-17 16:44] VITALS: BP 105/64; PULSE 78
[2024-06-17] MEDS: LORazepam 1 MG Tablet PO ×2 (18:26→23:31)
[2024-06-17] MEDS: Electrolyte Solution/Peg's 4000 ML 1000 ML PO (20:31)
[2024-06-17] MEDS: Senna/Docusate Sodium 1 Tablet 2 TABLET PO (20:33)
[2024-06-17] MEDS: Dicyclomine 10 MG Capsule PO (20:33)
[2024-06-17] MEDS: MELATONIN 3 MG TABLET PO (20:34)
[2024-06-17] MEDS: traZODone 100 MG Tablet PO (20:34)
[2024-06-17] MEDS: OLANZapine 5 MG/TAB TAB.RAPDIS PO (20:44)
[2024-06-17] MEDS: Meropenem 1 GM in 0.9% Normal Saline (100mL MB+) 100 ML IV (20:46)
[2024-06-17] MEDS: 0.9% Normal Saline (250mL Bag) 250 ML 15 ML IV (20:47)
[2024-06-18] MEDS: 0.9% Saline Lock 10 ML Syringe IV ×3 (01:07→22:54)
[2024-06-18] MEDS: Levothyroxine 125 MCG Tablet PO (06:01)
[2024-06-18] MEDS: Dicyclomine 10 MG Capsule PO ×4 (06:01→22:57)
[2024-06-18] MEDS: Carbidopa/Levodopa 10/100 Tablet PO ×3 (06:01→16:56)
[2024-06-18 06:17] VITALS: PULSE 86; RESP 16; O2SAT 99
[2024-06-18] MEDS: Potassium Chloride Oral Tablet 10 MEQ PO (09:39)
[2024-06-18] MEDS: Escitalopram Oxalate 10 MG Tablet PO (09:40)
[2024-06-18] MEDS: Magnesium Chloride 64 MG Delay Rel.Tablet 128 MG PO (09:40)
[2024-06-18] MEDS: Torsemide 100 MG Tablet PO ×2 (09:40→22:59)
[2024-06-18] MEDS: Senna/Docusate Sodium 1 Tablet 2 TABLET PO ×2 (09:40→22:57)
[2024-06-18] MEDS: APIXABAN 2.5 MG TABLET (WCH) PO ×2 (09:40→22:58)
[2024-06-18] MEDS: Amiodarone 200 MG Tablet PO (09:40)
[2024-06-18] MEDS: Midodrine HCl 5 MG Tablet PO ×3 (09:40→16:59)
[2024-06-18] MEDS: Cholecalciferol (VIT D3) 25 MCG TABLET (1,000 UNITS) PO (09:41)
[2024-06-18] MEDS: TAFAMIDIS 61 MG CAPSULE PO (09:41)
[2024-06-18] MEDS: Meropenem 1 GM in 0.9% Normal Saline (100mL MB+) 100 ML IV ×2 (09:50→22:54)
[2024-06-18] MEDS: Menthol/Lanolin/Calamine/Znox 113 GM Tube 1 APPLIC TOPICAL ×2 (11:51→22:55)
[2024-06-18 16:00] VITALS: BP 104/61; PULSE 80; RESP 20; TEMP 36.3; O2SAT 95
[2024-06-18] MEDS: LORazepam 1 MG Tablet PO ×2 (16:55→22:54)
[2024-06-18] MEDS: Tamsulosin HCl 0.4 MG Capsule PO (16:56)
[2024-06-18] MEDS: Acetaminophen 500 MG Tablet 1000 MG PO (22:55)
[2024-06-18] MEDS: MELATONIN 3 MG TABLET PO (22:58)
[2024-06-18] MEDS: traZODone 100 MG Tablet PO (22:58)
[2024-06-18] MEDS: OLANZapine 5 MG/TAB TAB.RAPDIS PO (22:59)
[2024-06-19] MEDS: 0.9% Saline Lock 10 ML Syringe IV (03:52)
[2024-06-19] MEDS: Levothyroxine 125 MCG Tablet PO (06:10)
[2024-06-19] MEDS: Dicyclomine 10 MG Capsule PO ×2 (06:10→17:13)
[2024-06-19] MEDS: Carbidopa/Levodopa 10/100 Tablet PO ×2 (06:10→17:13)
[2024-06-19 10:09] VITALS: BP 83/47; PULSE 79; RESP 18; TEMP 36.2; O2SAT 98
[2024-06-19] MEDS: 0.9% Normal Saline (1000mL) 1,000 ML 999 ML IV (10:18)
[2024-06-19] MEDS: Menthol/Lanolin/Calamine/Znox 113 GM Tube 1 APPLIC TOPICAL ×2 (10:20→23:29)
[2024-06-19] MEDS: 0.9% Normal Saline (1000mL) 1,000 ML 60 ML IV (11:26)
[2024-06-19] MEDS: Meropenem 1 GM in 0.9% Normal Saline (100mL MB+) 100 ML IV (13:15)
--- NOTE | 2024-06-19 14:58 | NURSING ---
Pt. very lethargic this shift. Able to wake pt. for short periods but unable to keep pt. awake. Fluids encouraged, but pt. began to cough. Medication held due to lethargy and difficulty with intake.
[2024-06-19] MEDS: Acetaminophen 500 MG Tablet 1000 MG PO ×2 (15:51→23:29)
[2024-06-19 16:17] VITALS: BP 95/56
--- NOTE | 2024-06-19 16:28 | NURSING ---
Addendum entered by Rafa Fishman 06/19/24 18:07: Lactulose enema not tolerated. New orders per Dr. Tompkins for PO Lactulose T.I.D. Original Note: Dr. Tompkins notified of CT scan results. New order for Lactulose enema. Family updated.
[2024-06-19] MEDS: Tamsulosin HCl 0.4 MG Capsule PO (17:13)
[2024-06-19] MEDS: Midodrine HCl 5 MG Tablet PO (17:13)
[2024-06-19] MEDS: Lactulose 20 GM/30 ML UDC PO ×2 (17:44→23:26)
[2024-06-19] MEDS: Torsemide 100 MG Tablet PO (23:27)
[2024-06-19] MEDS: Senna/Docusate Sodium 1 Tablet 2 TABLET PO (23:27)
[2024-06-19] MEDS: APIXABAN 2.5 MG TABLET (WCH) PO (23:27)
[2024-06-19] MEDS: OLANZapine 5 MG/TAB TAB.RAPDIS PO (23:28)
[2024-06-19] MEDS: traZODone 100 MG Tablet PO (23:29)
[2024-06-19] MEDS: MELATONIN 3 MG TABLET PO (23:29)
[2024-06-19 23:30] VITALS: O2SAT 95
[2024-06-20] MEDS: Meropenem 1 GM in 0.9% Normal Saline (100mL MB+) 100 ML IV ×3 (00:17→22:38)
[2024-06-20] MEDS: Acetaminophen 500 MG Tablet 1000 MG PO ×2 (06:09→22:40)
[2024-06-20] MEDS: Lactulose 20 GM/30 ML UDC PO ×3 (06:09→22:35)
[2024-06-20] MEDS: Levothyroxine 125 MCG Tablet PO (06:10)
[2024-06-20] MEDS: Carbidopa/Levodopa 10/100 Tablet PO ×3 (06:11→17:05)
[2024-06-20] MEDS: Potassium Chloride Oral Tablet 10 MEQ PO (08:50)
[2024-06-20] MEDS: Ensure Plus High Protein 120 ML LIQUID PO ×3 (08:50→17:06)
[2024-06-20] MEDS: Midodrine HCl 5 MG Tablet PO ×3 (08:50→17:06)
[2024-06-20] MEDS: Torsemide 100 MG Tablet PO ×2 (08:50→22:36)
[2024-06-20] MEDS: Senna/Docusate Sodium 1 Tablet 2 TABLET PO ×2 (08:51→22:36)
[2024-06-20] MEDS: Cholecalciferol (VIT D3) 25 MCG TABLET (1,000 UNITS) PO (08:51)
[2024-06-20] MEDS: APIXABAN 2.5 MG TABLET (WCH) PO ×2 (08:51→22:37)
[2024-06-20] MEDS: Escitalopram Oxalate 10 MG Tablet PO (08:51)
[2024-06-20] MEDS: Magnesium Chloride 64 MG Delay Rel.Tablet 128 MG PO (08:52)
[2024-06-20] MEDS: Amiodarone 200 MG Tablet PO (08:52)
[2024-06-20] MEDS: TAFAMIDIS 61 MG CAPSULE PO (08:53)
[2024-06-20 11:56] VITALS: BP 97/60; PULSE 81; RESP 16; TEMP 36.2; O2SAT 95
[2024-06-20] MEDS: 0.9% Normal Saline (1000mL) 1,000 ML 60 ML IV (12:02)
[2024-06-20] MEDS: Menthol/Lanolin/Calamine/Znox 113 GM Tube 1 APPLIC TOPICAL ×2 (12:02→22:43)
[2024-06-20] MEDS: Tamsulosin HCl 0.4 MG Capsule PO (17:06)
[2024-06-20 22:32] VITALS: BP 102/61; PULSE 77; O2SAT 95
[2024-06-20] MEDS: OLANZapine 5 MG/TAB TAB.RAPDIS PO (22:34)
[2024-06-20] MEDS: traZODone 100 MG Tablet PO (22:37)
[2024-06-20] MEDS: MELATONIN 3 MG TABLET PO (22:40)
[2024-06-21] MEDS: Levothyroxine 125 MCG Tablet PO (05:53)
[2024-06-21] MEDS: Lactulose 20 GM/30 ML UDC PO ×3 (05:53→21:26)
[2024-06-21] MEDS: Acetaminophen 500 MG Tablet 1000 MG PO ×2 (05:53→15:49)
[2024-06-21] MEDS: Carbidopa/Levodopa 10/100 Tablet PO ×3 (05:53→15:48)
--- NOTE | 2024-06-21 08:39 | NURSING ---
Contract Coordinator Note; MDS for 06/21/2024 Complete
[2024-06-21] MEDS: Midodrine HCl 5 MG Tablet PO ×3 (09:08→18:37)
[2024-06-21] MEDS: Torsemide 100 MG Tablet PO ×2 (09:09→21:27)
[2024-06-21] MEDS: Potassium Chloride Oral Tablet 10 MEQ PO (09:09)
[2024-06-21] MEDS: Amiodarone 200 MG Tablet PO (09:09)
[2024-06-21] MEDS: APIXABAN 2.5 MG TABLET (WCH) PO ×2 (09:09→21:27)
[2024-06-21] MEDS: Escitalopram Oxalate 10 MG Tablet PO (09:10)
[2024-06-21] MEDS: Senna/Docusate Sodium 1 Tablet 2 TABLET PO ×2 (09:10→21:28)
[2024-06-21] MEDS: Magnesium Chloride 64 MG Delay Rel.Tablet 128 MG PO (09:10)
[2024-06-21] MEDS: TAFAMIDIS 61 MG CAPSULE PO (09:11)
[2024-06-21] MEDS: Cholecalciferol (VIT D3) 25 MCG TABLET (1,000 UNITS) PO (09:11)
[2024-06-21] MEDS: Ensure Plus High Protein 120 ML LIQUID PO ×3 (09:21→18:36)
[2024-06-21] MEDS: Menthol/Lanolin/Calamine/Znox 113 GM Tube 1 APPLIC TOPICAL ×2 (09:22→21:25)
[2024-06-21] MEDS: Meropenem 1 GM in 0.9% Normal Saline (100mL MB+) 100 ML IV ×2 (09:24→23:25)
[2024-06-21 10:00] VITALS: BP 113/62; PULSE 75; RESP 20; TEMP 36.4; O2SAT 97
--- NOTE | 2024-06-21 12:05 | CASEMGMT ---
Social Work SW conducted BIMS (02/10) and PHQ-9 (99) completed for MDS assessment. Pt wincing during questions and asked not to continue. pt was just toileted and was present. SW assisted with pt getting comfortable with additional pillows, blankets and fresh water. Pt was coughing immediately after drinking water through a straw. ST is consulted. Betzy Amezquita, BIOINFORMATICS PROGRAMMER HOTSHOT SUPERINTENDENT
--- NOTE | 2024-06-21 12:46 | NURSING ---
Offered covid vaccine, resident and present. VIS provided. They refused at this time.
[2024-06-21 14:00] VITALS: BP 81/52
[2024-06-21 15:00] VITALS: BP 82/52
[2024-06-21] MEDS: 0.9% Normal Saline (1000mL) 1,000 ML 60 ML IV (15:20)
[2024-06-21 18:00] VITALS: BP 93/61
[2024-06-21] MEDS: Tamsulosin HCl 0.4 MG Capsule PO (18:35)
[2024-06-21 21:24] VITALS: BP 99/66; PULSE 81
[2024-06-21] MEDS: traZODone 100 MG Tablet PO (21:27)
[2024-06-21] MEDS: MELATONIN 3 MG TABLET PO (21:28)
[2024-06-21] MEDS: OLANZapine 5 MG/TAB TAB.RAPDIS PO (21:29)
--- NOTE | 2024-06-22 03:53 | NURSING ---
Patient restless, not sleeping, talks out, Dr. Tompkins updated
[2024-06-22] MEDS: Levothyroxine 125 MCG Tablet PO (05:44)
[2024-06-22] MEDS: Carbidopa/Levodopa 10/100 Tablet PO ×3 (05:45→16:40)
[2024-06-22 05:57] LABS: Absolute Neutrophil Count 3.9 X10^3/uL (2.0-7.7); Basophil# 0.12 X10^3/uL; Basophil% 1.9 % (0-1); Eosinophils% 6.2 % (0-5); Hematocrit 37.7 % (40-54); Hemoglobin 11.9 g/dL (13.0-16.5); Lymphocyte % 15.6 % (19-41); Mean Corp Hgb Conc 31.6 g/dL (32-36); Mean Corpuscular Hgb 32.4 pg (27.0-32.0); Mean Corpuscular Volume 102.7 fL (80-94); Monocyte# 0.73 X10^3/uL; Monocyte% 11.4 % (0-10); NRBC Flagged by Analyzer 0 % (0-5); Neutrophil # 3.91 X10^3/uL (2.7-7.7); Neutrophil % 60.7 % (47-70); POSITIVE MORPHOLOGY YES; Platelet Count 105 K/mm3 (150-450); RBC Distribution Width CV 17.5 % (11.6-14.6); RBC Distribution Width SD 66.4 fl (35.1-43.9); Red Blood Count 3.67 M/mm3 (4.6-6.2); White Blood Count 6.4 K/mm3 (4.4-11.0)
[2024-06-22 06:07] LABS: Differential Indicated SCAN CRITERIA MET
[2024-06-22 06:28] LABS: Anion Gap 8 (5-15); BUN 37 mg/dL (7-18); BUN/Creat Ratio 19.9 RATIO (10-20); Calcium,Total 8.8 mg/dL (8.5-10.1); Chloride 109 mmol/L (98-107); Creatinine, Serum 1.86 mg/dL (0.70-1.30); EST Glomerular Filtration Rate 37 mL/min (>60); Est Glom Filt Rate - Afr Amer 44 mL/min (>60); Glucose 104 mg/dL (74-106); Potassium 2.6 mmol/L (3.5-5.1); Sodium Level 143 mmol/L (136-145)
--- NOTE | 2024-06-22 06:45 | NURSING ---
Lab notified nursing of critical low potassium 2.6, Dr. Tompkins updated, new orders: potassium chloride 60meq now, potassium chloride 60meq at 3pm, repeat BMP at 6pm, BMP in AM, potassium chloride 20meq twice a day, orders verified by read back.
--- NOTE | 2024-06-22 07:18 | NURSING ---
Notified by Avery FRANCO that resident refusing potassium pills, potassium critically low this AM, asked RN to try. Resident was calling for help when RN entered room, asked RN to call the police. Talked with resident for a while, ensured him RN wasn't doing anything that wasn't to help him. He held nurse's hand and continued to talk about calling police. Attempted give potassium in pudding, he took one bite but refused to take any more. Maybe took half a tab total. Left note updating Dr. Tompkins.
--- NOTE | 2024-06-22 07:44 | NURSING ---
Patient refused potassium chloride 60meq now, multiple attempts made, patient very suspicious of staff and meds, Dr. Tompkins updated.
[2024-06-22 10:00] VITALS: BMI 25.0
--- NOTE | 2024-06-22 10:23 | NURSING ---
Pt. refused morning meds, this nurse educated pt. on importance of taking medication, pt. continues to refuse.
[2024-06-22] MEDS: Escitalopram Oxalate 10 MG Tablet PO (11:28)
[2024-06-22] MEDS: Amiodarone 200 MG Tablet PO (11:28)
[2024-06-22] MEDS: Tuberculin,Purif.prot.deriv. 50 TU/ML Vial 0.1 ML ID (11:28)
[2024-06-22] MEDS: Torsemide 100 MG Tablet PO ×2 (11:28→22:50)
[2024-06-22] MEDS: APIXABAN 2.5 MG TABLET (WCH) PO ×2 (11:28→22:50)
[2024-06-22] MEDS: Senna/Docusate Sodium 1 Tablet 2 TABLET PO (11:28)
[2024-06-22] MEDS: Midodrine HCl 5 MG Tablet PO ×3 (11:28→18:22)
[2024-06-22] MEDS: Magnesium Chloride 64 MG Delay Rel.Tablet 128 MG PO (11:28)
[2024-06-22] MEDS: Cholecalciferol (VIT D3) 25 MCG TABLET (1,000 UNITS) PO (11:29)
[2024-06-22] MEDS: TAFAMIDIS 61 MG CAPSULE PO (11:29)
[2024-06-22] MEDS: Meropenem 1 GM in 0.9% Normal Saline (100mL MB+) 100 ML IV ×2 (11:33→22:36)
[2024-06-22] MEDS: Menthol/Lanolin/Calamine/Znox 113 GM Tube 1 APPLIC TOPICAL (11:40)
[2024-06-22 13:21] VITALS: BP 102/61; PULSE 79; RESP 18; TEMP 36.3; O2SAT 95
[2024-06-22] MEDS: Lactulose 20 GM/30 ML UDC PO (13:38)
[2024-06-22] MEDS: Ensure Plus High Protein 120 ML LIQUID PO ×2 (13:38→16:43)
[2024-06-22] MEDS: 0.9% Normal Saline (1000mL) 1,000 ML 60 ML IV (15:31)
--- NOTE | 2024-06-22 15:42 | CHAPLAIN ---
Type of Pastoral Visit _x__ Initial Visit ___ Follow-up Visit ___ On-call Visit ___ General Patient Visit ___ Spiritual Assessment ___ Family Conference ___ Bereavement ___ Rapid Response ___ Code Blue ___ Other (describe below) Pastoral Care Referral From _x__ Patient ___ Family ___ Nurse ___ Physician ___ Marble Cleaner ___ Optimization Specialist ___ Other (describe below) Sacrament/Intervention ___ Active listening ___ Anointing ___ Moravian ___ Bereavement ___ Communion ___ Faiza exploration ___ ___ Life review ___ Prayer ___ Reconciliation ___ Sacrament of Sick _x__ Supportive presence ___ Wedding ___ Other (describe below) Pastoral Comments patient is sleeping in his chair and did not awaken during visit with his who was at his side; offer of support given to the spouse; spouse talks about the situation and agrees to let him sleep at this time; spouse indicates that pt is having a better day today and that he would like to talk to you sometime when you can come back; a follow up visit will be tried again at another day
[2024-06-22] MEDS: Potassium Chloride Oral Tablet 20 MEQ 60 MEQ PO ×2 (16:40→18:35)
[2024-06-22] MEDS: Tamsulosin HCl 0.4 MG Capsule PO (16:40)
[2024-06-22 18:27] LABS: Anion Gap 8 (5-15); BUN 35 mg/dL (7-18); BUN/Creat Ratio 19.8 RATIO (10-20); Calcium,Total 8.4 mg/dL (8.5-10.1); Chloride 109 mmol/L (98-107); Creatinine, Serum 1.77 mg/dL (0.70-1.30); EST Glomerular Filtration Rate 39 mL/min (>60); Est Glom Filt Rate - Afr Amer 47 mL/min (>60); Estimated Creatinine Clearance 31.32 ml/min; Glucose 121 mg/dL (74-106); Potassium 2.6 mmol/L (3.5-5.1); Sodium Level 142 mmol/L (136-145)
[2024-06-22 21:58] LABS: Potassium 3.1 mmol/L (3.5-5.1)
[2024-06-22] MEDS: traZODone 100 MG Tablet PO (22:50)
[2024-06-22] MEDS: OLANZapine 5 MG/TAB TAB.RAPDIS PO (22:50)
[2024-06-22] MEDS: MELATONIN 3 MG TABLET PO (22:50)
--- NOTE | 2024-06-23 | NURSING ---
Patient self removed IV tubing and adapter loop with IV cannula intact and IV dressing still attached. IV cannula removed, gauze dressing applied. Personal hygiene provided, linens changed, new gown provided. Patient repositioned to promote comfort. Confusion continues, alert to self, paranoid, one on one provided, pt stated, get me out of nursing home. Attempted to reorient patient, unsuccessful. Attempted to educate patient on importance of IV antibiotics and fluids, patient verbalized understanding.
[2024-06-23] MEDS: Carbidopa/Levodopa 10/100 Tablet PO ×3 (06:30→17:21)
[2024-06-23] MEDS: Lactulose 20 GM/30 ML UDC PO ×3 (06:30→22:25)
[2024-06-23] MEDS: Levothyroxine 125 MCG Tablet PO (06:30)
[2024-06-23 07:43] LABS: Anion Gap 7 (5-15); BUN 34 mg/dL (7-18); BUN/Creat Ratio 20.2 RATIO (10-20); Calcium,Total 8.5 mg/dL (8.5-10.1); Chloride 111 mmol/L (98-107); Creatinine, Serum 1.68 mg/dL (0.70-1.30); EST Glomerular Filtration Rate 41 mL/min (>60); Est Glom Filt Rate - Afr Amer 50 mL/min (>60); Estimated Creatinine Clearance 32.99 ml/min; Glucose 99 mg/dL (74-106); Sodium Level 144 mmol/L (136-145)
[2024-06-23] MEDS: Midodrine HCl 5 MG Tablet PO ×3 (08:04→17:35)
[2024-06-23] MEDS: APIXABAN 2.5 MG TABLET (WCH) PO ×2 (08:04→22:25)
[2024-06-23] MEDS: Amiodarone 200 MG Tablet PO (08:04)
[2024-06-23] MEDS: Potassium Chloride Oral Tablet 20 MEQ PO ×3 (08:04→17:21)
[2024-06-23] MEDS: Menthol/Lanolin/Calamine/Znox 113 GM Tube 1 APPLIC TOPICAL ×2 (08:13→22:25)
[2024-06-23] MEDS: Torsemide 100 MG Tablet PO ×2 (08:16→22:33)
[2024-06-23] MEDS: Magnesium Chloride 64 MG Delay Rel.Tablet 128 MG PO (08:17)
[2024-06-23] MEDS: TAFAMIDIS 61 MG CAPSULE PO (08:18)
[2024-06-23] MEDS: Cholecalciferol (VIT D3) 25 MCG TABLET (1,000 UNITS) PO (08:18)
[2024-06-23 08:29] VITALS: BP 105/66; PULSE 80
[2024-06-23] MEDS: Ensure Plus High Protein 120 ML LIQUID PO ×3 (09:11→17:35)
[2024-06-23] MEDS: Meropenem 1 GM in 0.9% Normal Saline (100mL MB+) 100 ML IV ×2 (10:47→22:37)
[2024-06-23] MEDS: 0.9% Saline Lock 10 ML Syringe IV ×3 (10:48→22:25)
[2024-06-23] MEDS: 0.9% Normal Saline (1000mL) 1,000 ML 60 ML IV ×2 (10:55→17:21)
[2024-06-23 12:22] VITALS: BP 89/66; PULSE 80
--- NOTE | 2024-06-23 13:26 | CASEMGMT ---
Social Work IDT met with patient, and three daughters for care plan meeting. Discussed patient's progress in PT/OT/ST/SN. Educated to Medicare benefit. Pt is on day . Provided pt with written communication on insurance process and copay coverage during stay. Discussed family's goals for pt's care. Family recognizes pt is not eating well, which impacts his energy and able to improve in therapy. SW asked pt about his favorite foods, mainly sweets. Protective Signal Repairer added requests to meal trays. SW and Protective Signal Repairer educated to Remeron. Family agreeable. Pt is on IV ATB for a few more days to treat an infection. Pt also receiving IVF this date. Family inquired about IDTs perspective. SW explained IDT is in agreement to see how pt responds to IV ATB and Remeron, then to assess next week if there any improvements. Broached in conversation that those interventions may not be enough to see improve 'enough'. If not, then this worker can discuss further about options and have Dr discuss prognosis. Family expressed understanding, their appreciation for the care, and appear realistic to pt's abilities. SW will continue to follow for DC planning. ROSE KelleyW
[2024-06-23 14:23] VITALS: BP 96/58; PULSE 79
[2024-06-23 15:17] VITALS: PULSE 80; RESP 14; TEMP 36.2; O2SAT 96
[2024-06-23] MEDS: Tamsulosin HCl 0.4 MG Capsule PO (17:21)
[2024-06-23 17:43] VITALS: BP 106/73; PULSE 78
--- NOTE | 2024-06-23 18:15 | NURSING ---
This nurse called to pt room d/t Patient removed needles connector from the IV tubing. [place] connector applied and flushed with NS. 0.9% NS was running at 60ml and leaked onto floor. New Bag of fluids with IV tubing. Pt's gown changed and assisted to bed. Pt educated per pt he stated I was bored and was playing with it. IV Site wrapped with Kerlix to keep pt from messing with site. Dr. Tompkins into see pt.
[2024-06-23] MEDS: MELATONIN 3 MG TABLET PO (22:25)
[2024-06-23] MEDS: OLANZapine 5 MG/TAB TAB.RAPDIS PO (22:25)
[2024-06-23] MEDS: traZODone 100 MG Tablet PO (22:25)
[2024-06-24] MEDS: Lactulose 20 GM/30 ML UDC PO ×3 (05:25→20:58)
[2024-06-24] MEDS: Carbidopa/Levodopa 10/100 Tablet PO ×3 (05:25→17:43)
[2024-06-24] MEDS: Levothyroxine 125 MCG Tablet PO (05:25)
[2024-06-24 05:59] LABS: Anion Gap 7 (5-15); BUN 30 mg/dL (7-18); Calcium,Total 8.3 mg/dL (8.5-10.1); Chloride 110 mmol/L (98-107); Creatinine, Serum 1.58 mg/dL (0.70-1.30); EST Glomerular Filtration Rate 44 mL/min (>60); Est Glom Filt Rate - Afr Amer 54 mL/min (>60); Estimated Creatinine Clearance 35.08 ml/min; Glucose 110 mg/dL (74-106); Potassium 2.9 mmol/L (3.5-5.1); Sodium Level 142 mmol/L (136-145)
[2024-06-24] MEDS: Amiodarone 200 MG Tablet PO (09:03)
[2024-06-24] MEDS: Menthol/Lanolin/Calamine/Znox 113 GM Tube 1 APPLIC TOPICAL ×2 (09:03→21:00)
[2024-06-24] MEDS: Ensure Plus High Protein 120 ML LIQUID PO (09:03)
[2024-06-24] MEDS: APIXABAN 2.5 MG TABLET (WCH) PO ×2 (09:03→20:59)
[2024-06-24] MEDS: Magnesium Chloride 64 MG Delay Rel.Tablet 128 MG PO (09:03)
[2024-06-24] MEDS: Potassium Chloride Oral Tablet 20 MEQ 40 MEQ PO ×2 (09:03→17:43)
[2024-06-24] MEDS: Torsemide 100 MG Tablet PO ×2 (09:03→20:59)
[2024-06-24] MEDS: Cholecalciferol (VIT D3) 25 MCG TABLET (1,000 UNITS) PO (09:04)
[2024-06-24] MEDS: TAFAMIDIS 61 MG CAPSULE PO (09:04)
[2024-06-24] MEDS: Midodrine HCl 5 MG Tablet PO ×3 (09:06→17:44)
[2024-06-24] MEDS: Meropenem 1 GM in 0.9% Normal Saline (100mL MB+) 100 ML IV ×2 (09:45→20:51)
--- NOTE | 2024-06-24 10:34 | MDS.RN ---
Information for the MDS was obtained from review of the clinical record, interview of resident, staff, and direct observation of resident?s care.
[2024-06-24] MEDS: Escitalopram Oxalate 10 MG Tablet 5 MG PO (11:47)
--- NOTE | 2024-06-24 12:02 | CASEMGMT ---
Addendum entered by Betzy Amezquita 06/25/24 10:54: SW left with updating on [facility] and [facility] can accept with a semi-private room as well. SW to follow up with on plans 06/28. Addendum entered by Betzy Amezquita 06/24/24 15:11: [facility] can accept with a bed available 06/30. Original Note: Social Work requested to speak with this worker. SW met with at bedside, while pt was in [facility]. explained she confirmed with pt's secondary insurance they will cover the Medicare copays. inquired about the restarting of the Medicare benefit period. SW educated to no ER or acute hospitalizations for 60 consecutive days. states she feels like pt is giving up. SW informed of Dr. Tompkins's conversation with pt that pt declined the scheduled Tylenol and start of Remeron, still has will to life and improve, and is not giving up. disappointed with not having the medication adjustments. SW offered for to speak with pt on his recollection of his conversation with Dr. Tompkins to see if he remembers those details. agreed with pt that if there is not improvement by 06/28, pt will DC to a SNF with hospice services. wants pt to remain in TCU as long as possible citing the great care pt is receiving, but understanding of the potential need for hospice and transfer. SW requested and family discuss SNF placement and choices for this worker to start placing referrals. SW inquired about [facility] still being first choice. confirmed and that [facility] would be second choice. SW to refer to both SNFs and provide update to . SW offered ongoing assistance. appreciative. SW updated [facility] and sent clinicals. Referred to [facility]. Will continue to follow. Betzy Amezquita, ROSE MANAGER ELECTRICAL
--- NOTE | 2024-06-24 13:08 | CHAPLAIN ---
Type of Pastoral Visit _x__ Initial Visit ___ Follow-up Visit ___ On-call Visit ___ General Patient Visit ___ Spiritual Assessment ___ Family Conference ___ Bereavement ___ Rapid Response ___ Code Blue ___ Other (describe below) Pastoral Care Referral From _x__ Patient _x_ Family ___ Nurse ___ Physician ___ Radiologic Therapist ___ Parts Fabricator ___ Other (describe below) Sacrament/Intervention _x__ Active listening ___ Anointing ___ Restorationist ___ Bereavement ___ Communion ___ Faiza exploration ___ _x__ Life review _x__ Prayer ___ Reconciliation ___ Sacrament of Sick _x__ Supportive presence ___ Wedding ___ Other (describe below) Pastoral Comments patient is sitting in the activities area and napping; pt is able to awaken and talk with this remote encoding center manager; pt is a little slow to respond to questions but does stay involved in the conversation; talk is about life review and living in his community all his life; pt is pleasant and expresses thankfulness for the support and time to visit; pt does not initiate in the conversations but does answer appropriately; spouse of the patient arrives at this time; prayer is given
[2024-06-24 14:26] VITALS: BP 98/61; PULSE 111; RESP 20; TEMP 36.4; O2SAT 94
[2024-06-24] MEDS: Tamsulosin HCl 0.4 MG Capsule PO (17:44)
[2024-06-24] MEDS: 0.9% Normal Saline (1000mL) 1,000 ML 60 ML IV (18:50)
[2024-06-24] MEDS: traZODone 100 MG Tablet PO (20:59)
[2024-06-24] MEDS: MELATONIN 3 MG TABLET PO (20:59)
[2024-06-24] MEDS: OLANZapine 5 MG/TAB TAB.RAPDIS PO (21:00)
[2024-06-24] MEDS: Senna/Docusate Sodium 1 Tablet 2 TABLET PO (21:00)
[2024-06-24] MEDS: LORazepam 0.5 MG Tablet PO (23:01)
[2024-06-24] MEDS: Acetaminophen 500 MG Tablet 1000 MG PO (23:07)
[2024-06-25] MEDS: LORazepam 0.5 MG Tablet PO ×2 (04:06→20:45)
[2024-06-25] MEDS: Levothyroxine 125 MCG Tablet PO (06:31)
[2024-06-25] MEDS: Acetaminophen 500 MG Tablet 1000 MG PO ×2 (06:31→20:40)
[2024-06-25] MEDS: Carbidopa/Levodopa 10/100 Tablet PO ×3 (06:31→16:41)
[2024-06-25 06:34] LABS: Anion Gap 8 (5-15); BUN 30 mg/dL (7-18); Calcium,Total 8.1 mg/dL (8.5-10.1); Chloride 110 mmol/L (98-107); Creatinine, Serum 1.58 mg/dL (0.70-1.30); EST Glomerular Filtration Rate 44 mL/min (>60); Est Glom Filt Rate - Afr Amer 54 mL/min (>60); Estimated Creatinine Clearance 35.08 ml/min; Glucose 100 mg/dL (74-106); Potassium 2.9 mmol/L (3.5-5.1); Sodium Level 140 mmol/L (136-145)
[2024-06-25 06:58] VITALS: PULSE 80; O2SAT 95
[2024-06-25] MEDS: Midodrine HCl 5 MG Tablet PO ×3 (08:28→18:53)
[2024-06-25] MEDS: Potassium Chloride Oral Tablet 20 MEQ 40 MEQ PO ×4 (08:29→20:30)
[2024-06-25] MEDS: Meropenem 1 GM in 0.9% Normal Saline (100mL MB+) 100 ML IV (10:18)
[2024-06-25] MEDS: Torsemide 100 MG Tablet PO ×2 (11:13→20:46)
[2024-06-25] MEDS: APIXABAN 2.5 MG TABLET (WCH) PO ×2 (11:14→20:31)
[2024-06-25] MEDS: Magnesium Chloride 64 MG Delay Rel.Tablet 128 MG PO (11:14)
[2024-06-25] MEDS: Menthol/Lanolin/Calamine/Znox 113 GM Tube 1 APPLIC TOPICAL ×2 (11:14→20:44)
[2024-06-25] MEDS: Escitalopram Oxalate 10 MG Tablet 5 MG PO (11:15)
[2024-06-25] MEDS: Amiodarone 200 MG Tablet PO (11:15)
[2024-06-25] MEDS: Cholecalciferol (VIT D3) 25 MCG TABLET (1,000 UNITS) PO (11:16)
[2024-06-25] MEDS: TAFAMIDIS 61 MG CAPSULE PO (11:17)
--- NOTE | 2024-06-25 12:50 | RAD_ITS ---
STUDY: X-RAY CHEST REASON FOR EXAM: Male, 88 years old. Moist, unproductive cough, wheezing TECHNIQUE: PA and lateral views of the chest. COMPARISON: None. FINDINGS: Bilateral pleural effusions left greater than right with evidence of vascular congestion and CHF. Superimposed bibasilar dependent atelectasis. Sternal cerclage wires and vascular clips are present from a prior sternotomy and coronary artery bypass graft procedure (CABG). Cardiomegaly. A left-sided dual-chamber pacemaker is seen. Normal mediastinum and rosy. Normal visualized pulmonary arteries. Normal visualized aortic arch and descending thoracic aorta. There are diffuse degenerative changes of the visualized thoracic spine. Normal visualized ribs, clavicles, and shoulders. There is no demonstrated abnormality of the visualized soft tissue structures of the upper abdomen. RAD/Chest PA and Lateral IMPRESSION: CHF. Bilateral pleural effusions left greater than right with bibasilar dependent atelectasis. Cardiomegaly. Electronically Signed: Brayan Woody MD at 13:59 EDT ,
--- NOTE | 2024-06-25 15:00 | PCM.PROGNOTE ---
Subjective Subjective Asked to see patient by nursing for persistent loose cough and shortness of breath. H&P reviewed. 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 On Midodrine for hypotension and has been getting IV fluids at 60 cc/hr. Med list reviewed. He is taking Zyprexa 5 mg p.o. nightly along with 100 mg of trazodone. He is also been getting as needed lorazepam and has taken 2 doses. He was on Zyprexa when he presented to the transitional care unit. This was started at a different facility for delirium/behavioral disturbance. He has been on Midodrine for orthostatic hypotension........this could be related to the Zyprexa. He is very somnolent and he was a little difficult to arouse when I wanted to examine him. He is having apneic episodes when I watch him while I am talking with his . He is drooling while sleeping. He has a loose cough with deep breathing.......I suspect the fluids are sitting in the posterior pharynx while he is sleeping and apneic. ST is working with him. I think he is being fed when he is less than alert. He is arousable but, does not stay awake for long. When he is awake he is quite witty.......when I asked how old he was he looked at me and said would you believe I am 22. He has JVD Lungs -breath sounds are very diminished in both bases. There are crackles in both bases. He coughs when taking a deep breath. He is not tachypneic. Scattered mild wheezing which is more than likely secondary to acute congestive heart failure rather than COPD. He has never smoked. Heart-distant heart sounds, Regular rhythm He has pitting edema of the LE's Abd is soft and NT/ND and he has no guarding with palpation. BS' s are present in all quadrants. Skin over the LE's is brawny. CXR today with BL pleural effusions and increased vascular distention. BNP is 706. IT was much higher at the previous hospital. All lab drawn today was personally reviewed. Sodium is 140 and the potassium is low at 2.9. It was also 2.9 on 06/24/2024. He is on Demadex 100 mg twice daily. Magnesium is normal at 2.0. Calcium is low at 8.1. He is incontinent of urine so intake and output are not accurate. He has not been getting daily weights. Impressions 1. acute on chronic CHF with hx of Amyloid CM 2. hx of delirium with behavioral disturbance - placed on Zyprexa. 3. orthostatic hypotension - due to Zyprexa and Tamulosin? 4. 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 or does he have PD? I suspect parkinsonism. His tells me she has never been told he has Parkinson's disease. He was not on carbidopa levodopa at admission to TCU. This was started later. 5. Oversedation - Taking Zyprexa, Trazodone 100 at HS, PRN Lorazepam and Melatonin. 6. not able to handle his oral secretions.......not PNA on XRAY. 7. Severe hypokalemia on Decrease the Zyprexa to 2.5 mg - would like to taper this off because of the orthostatic hypotension and Parkinsonism. DC IV fluids and have nursing get a weight in the AM DC Lorazepam Decrease Trazodone to 50 mg PRN at HS.......he is sleeping most of the day and awake at night. Continue Melatonin Aggressively replace K today. Add a dose of Aldactone to the drug regimen Recheck lab in the AM. Check a cortisol in the Am to exclude adrenal insufficiency as contributing to orthostatic hypotension. I suspect that addl the sedation he is getting is contributing to Hypersomnolence and confusion.......Try and keep him awake during the day so that he will sleep at night. IS/PEP every hour during the day Objective Data Objective Data Vital Signs: Vital Signs Temp Pulse Resp BP Pulse Ox O2 Del Method 97.5 F L 80 20 H 98/61 95 Room Air 06/24/24 14:26 06/25/24 06:58 06/24/24 14:26 06/24/24 14:06/25/24 06:58 06/25/24 06:58 Oxygen Delivery Method Room Air Weight: 179 lb 3.2 oz Body Mass Index (BMI) 25.0 Intake & Output: Intake and Output for Last 24 Hours 06/23/24 06/24/24 06/25/24 23:59 23:59 23:59 Intake Total 1970 465 / 465 Balance 1970 465 / 465 Medical Nutrition Assessment Dietitian: Malnutrition Criteria Met Start: 06/23/24 15:13 Freq: Status: Active Protocol: Document 06/23/24 15:13 SLA (Rec: 06/23/24 15:13 SLA [email or web address]) Nutrition Malnutrition Evidence of Malnutrition Exists Yes Malnutrition (severe): Acute Illness/Injury Evidenced By Suboptimal Energy Intake ( Severe),Weight Loss (Severe) Intake Problem Decreased Nutrient Needs (specify) Status Inactive Problem Inadequate Oral Intake Status Inactive Problem Clinical Problem Biting/Chewing Difficulty Etiology swallowing related to issues with dysphagia Signs/Symptoms as evidenced by need of mech altered diet consistency Status Active Problem Acute Disease or Injury Related Malnutrition Etiology related to confusion/lethargy and inadequate energy intake Signs/Symptoms as evidenced by 3.2% unintended wt loss x ~ 1 wk and po intake meeting <50% of est nutritional needs Status Active Problem Recommendation Dietitian Recommendations/Changes Will liberalize diet to liberal Regular - consistency per COLLECTION ANALYST - d/t signs and symptoms of malnutrition Will provide fruit pie and ice cream w/ lunch and dinner for increased nutrition if consumed per family request. Continue Ensure Plus High Protein tid w/ medpass Rec appetite stimulant to help encourage increased po intake at meals Rec consider supplemental nutrition support if in accordance w/ res/family wishes to help prevent additional decrease in res nutritional status Lab / Micro Data 06/26/24 04:50 06/26/24 04:50 Labs: Laboratory Results - last 24 hr 06/25/24 05:42: Sodium 140, Potassium 2.9 L, Chloride 110 H, Carbon Dioxide 22.0, Anion Gap 8, BUN 30 H, Creatinine 1.58 H, Estim Creat Clear Calc 35.08, Est GFR (MDRD) Af Amer 54 L, Est GFR (MDRD) Non-Af 44 L, BUN/Creatinine Ratio 19.0, Glucose 100, Calcium 8.1 L, Magnesium 2.0 Micro: Microbiology 06/15/24 11:00 Urine, Clean Catch Urine Culture - Final Pseudomonas fluorescens Radiography Diagnostic Testing: Radiology Impression Chest X-Ray 06/25/24 12:50 IMPRESSION: CHF. Bilateral pleural effusions left greater than right with bibasilar dependent atelectasis. Cardiomegaly. Electronically Signed: Brayan Woody MD at 13:59 EDT , Physical Exam Const Constitutional Narrative: drowsy, able to talk with me, nodding off to sleep. Having apneic periods when sleeping. Has a hx of MEREDITH but, not wearing CPAP because he feels like he is smothering. He was cooperative with me HEENT HEENT Narrative: + JVD Eyes Eyes Narrative: No scleral icterus Neck Neck Narrative: Positive JVD, carotids have weak pulse volume Resp Resp Narrative: He did cooperate with me to take deep breaths. Deep breathing causes him to cough. The cough is loose and he has secretions but, he is too weak to expectorate. Scattered wheezing, Diminished BS's in both bases. Crackles in both bases. Dull to percussion in the bases. Cardio Cardio Narrative: Heart sounds are distant. Rhythm is regular. I did not appreciate any murmurs. unable to evaluate for gallop due to the very distant heart sounds. GI GI Narrative: NT to palpation. Some pitting in the flanks. ND. Extremity Extremity Narrative: His hands are cool to the touch. Skin Rashes: No rashes noted Charges/Coding Visit Charges Inpatient E&M: 06737 SNF Subs L2
[2024-06-25 15:58] VITALS: BP 104/56; PULSE 82; RESP 14; TEMP 36.2; O2SAT 98
[2024-06-25] MEDS: Spironolactone 25 MG Tablet PO (16:41)
[2024-06-25] MEDS: Tamsulosin HCl 0.4 MG Capsule PO (16:41)
[2024-06-25 17:30] LABS: BNP,B-Type NATRIURETIC PEPTIDE 706.1 pg/mL (0-100)
[2024-06-25 18:45] VITALS: BP 89/62; PULSE 80
[2024-06-25 19:14] LABS: Potassium 3.5 mmol/L (3.5-5.1)
--- NOTE | 2024-06-25 19:30 | NURSING ---
Dr. Dickerson updated on 1899 Potassium level of 3.5, new order for IV Lasix 80mg x1 dose, order verified by read back and aknowledged.
[2024-06-25 20:03] VITALS: O2SAT 97
[2024-06-25] MEDS: 0.9% Saline Lock 10 ML Syringe IV ×3 (20:26→20:47)
[2024-06-25] MEDS: Furosemide 100 MG/10 ML Vial 80 MG IV (20:26)
--- NOTE | 2024-06-25 20:26 | NURSING ---
O2 applied at 2L/m via nasal canula for comfort, POX 97% RA.
[2024-06-25] MEDS: MELATONIN 3 MG TABLET PO (20:29)
[2024-06-25 20:32] VITALS: BP 112/55; PULSE 80
[2024-06-25] MEDS: OLANZapine 5 MG/TAB TAB.RAPDIS PO (20:46)
[2024-06-25] MEDS: traZODone 100 MG Tablet PO (20:46)
--- NOTE | 2024-06-25 23:33 | NURSING ---
Patient will not leave O2 on, staff reapplying is causing patient agitation, O2 left off per patient request.
[2024-06-26] MEDS: LORazepam 0.5 MG Tablet PO (00:51)
[2024-06-26] MEDS: Acetaminophen 500 MG Tablet 1000 MG PO ×2 (04:17→23:05)
[2024-06-26 05:09] LABS: Absolute Lymphocyte Count 1.27 X10^3/uL (0.83-4.51); Absolute Neutrophil Count 4.5 X10^3/uL (2.0-7.7); Basophil# 0.09 X10^3/uL; Basophil% 1.2 % (0-1); Eosinophil# 0.14 X10^3/uL; Eosinophils% 1.9 % (0-5); Hematocrit 36.7 % (40-54); Hemoglobin 11.5 g/dL (13.0-16.5); Lymphocyte # 1.27 X10^3/ul (0.83-4.51); Mean Corp Hgb Conc 31.3 g/dL (32-36); Mean Corpuscular Hgb 32.4 pg (27.0-32.0); Mean Corpuscular Volume 103.4 fL (80-94); Mean Platelet Vol. 11.2 fl (6.2-12.0); Monocyte# 1.21 X10^3/uL; Monocyte% 16.2 % (0-10); NRBC Flagged by Analyzer 0.3 % (0-5); Neutrophil # 4.48 X10^3/uL (2.7-7.7); Neutrophil % 59.8 % (47-70); POSITIVE COUNT YES; POSITIVE MORPHOLOGY YES; Platelet Count 75 K/mm3 (150-450); RBC Distribution Width CV 17.3 % (11.6-14.6); RBC Distribution Width SD 67.3 fl (35.1-43.9); Red Blood Count 3.55 M/mm3 (4.6-6.2); White Blood Count 7.5 K/mm3 (4.4-11.0)
[2024-06-26 05:30] LABS: Anion Gap 8 (5-15); BUN 34 mg/dL (7-18); BUN/Creat Ratio 17.4 RATIO (10-20); Calcium,Total 8.7 mg/dL (8.5-10.1); Chloride 107 mmol/L (98-107); Creatinine, Serum 1.95 mg/dL (0.70-1.30); EST Glomerular Filtration Rate 35 mL/min (>60); Est Glom Filt Rate - Afr Amer 42 mL/min (>60); Estimated Creatinine Clearance 28.43 ml/min; Glucose 100 mg/dL (74-106); Potassium 4.4 mmol/L (3.5-5.1); Sodium Level 136 mmol/L (136-145)
[2024-06-26 05:47] VITALS: O2SAT 96
[2024-06-26] MEDS: Levothyroxine 125 MCG Tablet PO (05:50)
[2024-06-26] MEDS: Carbidopa/Levodopa 10/100 Tablet PO ×2 (05:50→17:16)
[2024-06-26] MEDS: Lactulose 20 GM/30 ML UDC PO ×2 (05:57→14:26)
[2024-06-26 06:18] LABS: Differential Indicated SCAN CRITERIA MET
[2024-06-26 06:39] LABS: Platelet Estimate SLT DEC (ADEQ)
[2024-06-26 10:00] VITALS: BMI 26.8
[2024-06-26 10:50] VITALS: BP 92/59; PULSE 82; RESP 14; TEMP 35.9; O2SAT 94
[2024-06-26] MEDS: Potassium Chloride Oral Tablet 20 MEQ 40 MEQ PO ×3 (10:56→22:52)
[2024-06-26] MEDS: Midodrine HCl 5 MG Tablet PO ×3 (10:56→17:16)
[2024-06-26] MEDS: Escitalopram Oxalate 10 MG Tablet 5 MG PO (10:57)
[2024-06-26] MEDS: APIXABAN 2.5 MG TABLET (WCH) PO ×2 (10:57→22:52)
[2024-06-26] MEDS: Magnesium Chloride 64 MG Delay Rel.Tablet 128 MG PO (10:57)
[2024-06-26] MEDS: Torsemide 100 MG Tablet PO ×2 (10:57→22:52)
[2024-06-26] MEDS: Amiodarone 200 MG Tablet PO (10:57)
[2024-06-26] MEDS: Cholecalciferol (VIT D3) 25 MCG TABLET (1,000 UNITS) PO (10:57)
[2024-06-26] MEDS: Menthol/Lanolin/Calamine/Znox 113 GM Tube 1 APPLIC TOPICAL ×2 (10:58→22:50)
[2024-06-26] MEDS: Senna/Docusate Sodium 1 Tablet 2 TABLET PO (10:58)
[2024-06-26 14:29] VITALS: BP 100/72; PULSE 82; O2SAT 99
[2024-06-26] MEDS: 0.9% Saline Lock 10 ML Syringe IV (14:37)
--- NOTE | 2024-06-26 14:53 | PCM.PROGNOTE ---
Subjective Subjective Weight today is 192 pounds and 4 ounces which is up from 183 pounds and 6 ounces at admission to TCU. Daily weights ordered since I&O is not accurate due to urinary incontinence. Very somnolent again today. He had 2 doses of Ativan last night.......has been sleeping all day. Cough is less today since he received Lasix yesterday I had to shake him to arouse him.....he only stayed awake briefly Lungs - diminished in the bases, + basilar crackles. No wheezing today. HRRR, + JVD abd - soft NT ND has pitting edema of the distal LE's Impressions 1. Hypokalemia resolved - decrease Potassium to 40 MEQ TID, recheck a BMP on Friday. 2. Oversedation - taper sedative drugs. DC Lorazepam. Continue melatonin to help reestablish sleep wake cycle 3. Parkinsonism 4. Orthostatic hypotension 5. Amyloid cardiomyopathy on Vyndamax He is not to eat or drink unless he is fully awake. Only nursing to feed, not his . Daily weights - Add a salt restriction to his current diet Objective Data Objective Data Vital Signs: Vital Signs Temp Pulse Resp BP Pulse Ox O2 Del Method 96.6 F L 82 14 100/72 99 Room Air 06/26/24 10:50 06/26/24 14:29 06/26/24 10:50 06/26/24 14:29 06/26/24 14:29 06/26/24 14:29 Oxygen Delivery Method Room Air Weight: 192 lb 4 oz Body Mass Index (BMI) 26.8 Intake & Output: Intake and Output for Last 24 Hours 06/24/24 06/25/24 06/26/24 23:59 23:59 23:59 Intake Total 2059 1705 / 1705 480 / 480 Balance 2059 1705 / 1705 480 / 480 Medical Nutrition Assessment Dietitian: Malnutrition Criteria Met Start: 06/23/24 15:13 Freq: Status: Active Protocol: Document 06/23/24 15:13 TAMI (Rec: 06/23/24 15:13 TAMI [email or web address]) Nutrition Malnutrition Evidence of Malnutrition Exists Yes Malnutrition (severe): Acute Illness/Injury Evidenced By Suboptimal Energy Intake ( Severe),Weight Loss (Severe) Intake Problem Decreased Nutrient Needs (specify) Status Inactive Problem Inadequate Oral Intake Status Inactive Problem Clinical Problem Biting/Chewing Difficulty Etiology swallowing related to issues with dysphagia Signs/Symptoms as evidenced by need of mech altered diet consistency Status Active Problem Acute Disease or Injury Related Malnutrition Etiology related to confusion/lethargy and inadequate energy intake Signs/Symptoms as evidenced by 3.2% unintended wt loss x ~ 1 wk and po intake meeting <50% of est nutritional needs Status Active Problem Recommendation Dietitian Recommendations/Changes Will liberalize diet to liberal Regular - consistency per EMERGENCY DEPARTMENT MANAGER - d/t signs and symptoms of malnutrition Will provide fruit pie and ice cream w/ lunch and dinner for increased nutrition if consumed per family request. Continue Ensure Plus High Protein tid w/ medpass Rec appetite stimulant to help encourage increased po intake at meals Rec consider supplemental nutrition support if in accordance w/ res/family wishes to help prevent additional decrease in res nutritional status Lab / Micro Data 06/26/24 04:50 06/26/24 04:50 Labs: Laboratory Results - last 24 hr 06/25/24 05:42: B-Natriuretic Peptide 706.1 H 06/25/24 19:00: Potassium 3.5 06/26/24 04:50: WBC 7.5, RBC 3.55 L, Hgb 11.5 L, Hct 36.7 L, MCV 103.4 H, MCH 32.4 H, MCHC 31.3 L, RDW Std Deviation 67.3 H, RDW Coeff of Jaskaran 17.3 H, Plt Count 75 L, MPV 11.2, Immature Gran % (Auto) 3.900 H, Neut % (Auto) 59.8, Lymph % (Auto) 17.0 L, [place] % (Auto) 16.2 H, Eos % (Auto) 1.9, Baso % (Auto) 1.2 H, Absolute Neuts (auto) 4.5, Absolute Lymphs (auto) 1.27, Nucleated RBC % 0.3, Platelet Estimate SLT DEC, Sodium 136, Potassium 4.4, Chloride 107, Carbon Dioxide 22.0, Anion Gap 8, BUN 34 H, Creatinine 1.95 H, Estim Creat Clear Calc 28.43, Est GFR (MDRD) Af Amer 42 L, Est GFR (MDRD) Non-Af 35 L, BUN/Creatinine Ratio 17.4, Glucose 100, Calcium 8.7, Cortisol 31.70 H Micro: Microbiology 06/15/24 11:00 Urine, Clean Catch Urine Culture - Final Pseudomonas fluorescens Charges/Coding Visit Charges Inpatient E&M: 67738 [facility] Subs L1
[2024-06-26 15:39] VITALS: O2SAT 94
[2024-06-26] MEDS: Tamsulosin HCl 0.4 MG Capsule PO (17:16)
[2024-06-26] MEDS: MELATONIN 3 MG TABLET PO (22:52)
[2024-06-26] MEDS: OLANZapine 5 MG/TAB TAB.RAPDIS 2.5 MG PO (22:53)
[2024-06-26] MEDS: traZODone 50 MG Tablet PO (23:05)
[2024-06-27] MEDS: Carbidopa/Levodopa 10/100 Tablet PO ×3 (06:01→18:31)
[2024-06-27] MEDS: Potassium Chloride Oral Tablet 20 MEQ 40 MEQ PO ×3 (06:02→22:33)
[2024-06-27] MEDS: Levothyroxine 125 MCG Tablet PO (06:02)
[2024-06-27] MEDS: 0.9% Saline Lock 10 ML Syringe IV ×3 (06:03→20:02)
[2024-06-27] MEDS: Acetaminophen 500 MG Tablet 1000 MG PO (06:03)
[2024-06-27 06:59] VITALS: BMI 26.2
[2024-06-27 09:33] VITALS: BP 77/55; PULSE 83; RESP 16; TEMP 35.6; O2SAT 97
[2024-06-27 09:35] VITALS: BP 88/51
[2024-06-27 10:00] VITALS: O2SAT 97
--- NOTE | 2024-06-27 10:40 | NURSING ---
dr sierra updated on low BP, ok to hold BP meds. pt not even alert enough to swallow pills, pt awakens to name & tactile stimuli but returns back to sleep. no distress noted.
[2024-06-27] MEDS: Magnesium Chloride 64 MG Delay Rel.Tablet 128 MG PO (12:04)
[2024-06-27] MEDS: Cholecalciferol (VIT D3) 25 MCG TABLET (1,000 UNITS) PO (12:04)
[2024-06-27] MEDS: Senna/Docusate Sodium 1 Tablet 2 TABLET PO (12:04)
[2024-06-27] MEDS: Midodrine HCl 5 MG Tablet PO ×2 (12:04→18:31)
[2024-06-27] MEDS: TAFAMIDIS 61 MG CAPSULE PO (12:04)
[2024-06-27] MEDS: APIXABAN 2.5 MG TABLET (WCH) PO ×2 (12:05→22:33)
[2024-06-27] MEDS: Escitalopram Oxalate 10 MG Tablet 5 MG PO (12:05)
[2024-06-27] MEDS: Menthol/Lanolin/Calamine/Znox 113 GM Tube 1 APPLIC TOPICAL ×2 (12:05→22:32)
[2024-06-27] MEDS: Lactulose 20 GM/30 ML UDC PO ×2 (13:31→22:32)
--- NOTE | 2024-06-27 13:40 | NURSING ---
woke pt for 2p potassium and lactulose. pt stating no, no, no, I don't want to turning head side to side. says yes you can, you do it all the time gave pt a bite of [place] pudding with meds crushed in it.
[2024-06-27 16:12] VITALS: BP 87/56; PULSE 82; RESP 18; TEMP 35.9; O2SAT 96
[2024-06-27] MEDS: Tamsulosin HCl 0.4 MG Capsule PO (18:31)
[2024-06-27 20:06] VITALS: PULSE 80; O2SAT 99
[2024-06-27 22:27] VITALS: BP 104/66; PULSE 80; O2SAT 98
--- NOTE | 2024-06-27 22:29 | NURSING ---
Patient keeps taking O2 off, staff reapplies, O2 left off per patient request, POX 97% on RA.
[2024-06-27] MEDS: Torsemide 100 MG Tablet PO (22:33)
[2024-06-27] MEDS: MELATONIN 3 MG TABLET PO (22:34)
[2024-06-27] MEDS: OLANZapine 5 MG/TAB TAB.RAPDIS 2.5 MG PO (22:37)
[2024-06-27] MEDS: traZODone 50 MG Tablet PO (22:45)
[2024-06-28] MEDS: Acetaminophen 500 MG Tablet 1000 MG PO ×3 (01:55→22:10)
[2024-06-28] MEDS: Potassium Chloride Oral Tablet 20 MEQ 40 MEQ PO ×3 (05:52→22:00)
[2024-06-28] MEDS: Levothyroxine 125 MCG Tablet PO (05:53)
[2024-06-28] MEDS: Carbidopa/Levodopa 10/100 Tablet PO ×3 (05:53→16:50)
[2024-06-28 06:30] LABS: Anion Gap 9 (5-15); BUN 38 mg/dL (7-18); Calcium,Total 8.8 mg/dL (8.5-10.1); Chloride 108 mmol/L (98-107); Creatinine, Serum 1.81 mg/dL (0.70-1.30); EST Glomerular Filtration Rate 38 mL/min (>60); Est Glom Filt Rate - Afr Amer 46 mL/min (>60); Estimated Creatinine Clearance 30.62 ml/min; Glucose 98 mg/dL (74-106); Potassium 3.8 mmol/L (3.5-5.1); Sodium Level 138 mmol/L (136-145)
[2024-06-28] MEDS: Escitalopram Oxalate 10 MG Tablet 5 MG PO (09:34)
[2024-06-28] MEDS: Torsemide 100 MG Tablet PO ×2 (09:34→22:05)
[2024-06-28] MEDS: Magnesium Chloride 64 MG Delay Rel.Tablet 128 MG PO (09:34)
[2024-06-28] MEDS: APIXABAN 2.5 MG TABLET (WCH) PO ×2 (09:35→22:00)
[2024-06-28] MEDS: TAFAMIDIS 61 MG CAPSULE PO (09:36)
[2024-06-28] MEDS: Cholecalciferol (VIT D3) 25 MCG TABLET (1,000 UNITS) PO (09:36)
[2024-06-28] MEDS: Menthol/Lanolin/Calamine/Znox 113 GM Tube 1 APPLIC TOPICAL ×2 (09:37→21:58)
[2024-06-28] MEDS: Amiodarone 200 MG Tablet PO (09:37)
[2024-06-28] MEDS: Midodrine HCl 5 MG Tablet PO ×3 (09:37→16:50)
[2024-06-28] MEDS: Ensure Plus High Protein 120 ML LIQUID PO ×3 (09:44→16:50)
[2024-06-28 10:00] VITALS: O2SAT 95
--- NOTE | 2024-06-28 11:45 | CASEMGMT ---
Social Work SW followed up with nursing on pt's progress. Pt has declined over the weekend. In anticipation for SNF transfer, COVID test administered. present in pt's room. SW spoke with pt and at bedside. Discussed pt's weekend progress and how he feels today. commented on pt looking and sounder career development coordinator/teacher today. stated she had a meal with him over the weekend and he ate 3/4 of his meal. SW confirmed pt looks and feels career development coordinator/teacher, however, given the LOS and lack of medical and physical improvement, explained IDT recommends discharge to [facility] and with hospice. IDT updated this worker that pt did not have a good weekend overall, and noticing more decline. Concerned about pt's health and not responding to the ATB. Explained this intensive medical treatment and therapy may not be benefiting pt and his body is not responding well to it. Discussed hospice services and allowing the body and mind to relax, rest and possibly recharge. Explained no decision needs to be permanent; hospice can be revoked. and pt unsure about hospice decision. SW offered since [facility] is a new [facility] and will need to eval, for them to eval for palliative vs hospice and provide their recommendation since pt has changed since last palliative referral. Explained therapy can continue with palliative services, and that can also be stopped and transfer to hospice services at any time. and pt agreed to that decision. Pt having difficulty understanding not being able to DC home initially and the need to go to [facility], but and this worker explained further and pt agreeable. SW offered for pt and to think about information, while therapy is waiting to treat pt, and this worker will follow up. Both agreed. As this worker left pt's room, nursing updated SW that pt tested positive for COVID. SW returned to pt and explained positive COVID test, and [facility] is unable to accept with positive test. Pt would be in room isolation starting today for 10 additional days. disappointed but understanding. SW updated [facility] and will follow up with them closer to OOI date. Will continue to follow. Betzy Amezquita, ROSE PASTING INSPECTOR
[2024-06-28] MEDS: Lactulose 20 GM/30 ML UDC PO ×2 (14:22→21:59)
[2024-06-28 15:57] VITALS: BP 97/65; PULSE 79; RESP 19; TEMP 36.2; O2SAT 95
[2024-06-28] MEDS: Tamsulosin HCl 0.4 MG Capsule PO (16:50)
[2024-06-28] MEDS: dexAMETHasone 4 MG Tablet 6 MG PO (18:16)
[2024-06-28] MEDS: MELATONIN 3 MG TABLET PO (22:01)
[2024-06-28] MEDS: OLANZapine 5 MG/TAB TAB.RAPDIS 2.5 MG PO (22:02)
[2024-06-28] MEDS: traZODone 50 MG Tablet PO (22:10)
[2024-06-28 22:40] VITALS: BP 103/70; PULSE 78; O2SAT 96
--- NOTE | 2024-06-29 03:16 | NURSING ---
All patient care provided in room due to isolation due to COVID +
[2024-06-29] MEDS: Carbidopa/Levodopa 10/100 Tablet PO ×3 (05:39→18:01)
[2024-06-29] MEDS: Levothyroxine 125 MCG Tablet PO (05:39)
[2024-06-29] MEDS: Lactulose 20 GM/30 ML UDC PO ×2 (05:39→15:04)
[2024-06-29] MEDS: Potassium Chloride Oral Tablet 20 MEQ 40 MEQ PO ×2 (05:39→15:04)
[2024-06-29 06:00] VITALS: BMI 26.2
[2024-06-29 06:32] LABS: Hematocrit 36.6 % (40-54); Hemoglobin 11.5 g/dL (13.0-16.5); Mean Corp Hgb Conc 31.4 g/dL (32-36); Mean Corpuscular Hgb 32.6 pg (27.0-32.0); Mean Corpuscular Volume 103.7 fL (80-94); Mean Platelet Vol. 10.6 fl (6.2-12.0); POSITIVE COUNT YES; POSITIVE DIFFERENTIAL YES; POSITIVE MORPHOLOGY YES; Platelet Count 94 K/mm3 (150-450); RBC Distribution Width CV 17.6 % (11.6-14.6); RBC Distribution Width SD 66.3 fl (35.1-43.9); Red Blood Count 3.53 M/mm3 (4.6-6.2); White Blood Count 5.4 K/mm3 (4.4-11.0)
[2024-06-29 06:33] LABS: Anion Gap 11 (5-15); BUN 43 mg/dL (7-18); BUN/Creat Ratio 24.4 RATIO (10-20); Calcium,Total 8.8 mg/dL (8.5-10.1); Chloride 108 mmol/L (98-107); Creatinine, Serum 1.76 mg/dL (0.70-1.30); EST Glomerular Filtration Rate 39 mL/min (>60); Est Glom Filt Rate - Afr Amer 47 mL/min (>60); Estimated Creatinine Clearance 31.49 ml/min; Glucose 130 mg/dL (74-106); Potassium 4.3 mmol/L (3.5-5.1); Sodium Level 139 mmol/L (136-145)
[2024-06-29 06:50] LABS: Differential Indicated MANUAL DIFF
[2024-06-29 07:30] LABS: Anisocytosis 2+; Lymphocyte 9 % (19-41); Metamyelocyte 3 % (0-1); Monocyte 4 % (0-10); Myelocyte 2 % (0-0); Neutrophil-Band 4 % (0-5); Neutrophil-Segmented 78 % (47-70); Platelet Estimate MOD DEC (ADEQ); Polychromasia 1+; Total Cells Counted 100 (MANUAL DIFF)
[2024-06-29 07:31] LABS: Absolute Lymphocyte Count 0.49 X10^3/uL (0.83-4.51); Absolute Neutrophil Count 4.4 X10^3/uL (2.0-7.7)
[2024-06-29] MEDS: Amiodarone 200 MG Tablet PO (10:09)
[2024-06-29] MEDS: Midodrine HCl 5 MG Tablet PO ×3 (10:09→18:02)
[2024-06-29] MEDS: dexAMETHasone 4 MG Tablet 6 MG PO (10:11)
[2024-06-29] MEDS: Escitalopram Oxalate 10 MG Tablet 5 MG PO (10:12)
[2024-06-29] MEDS: APIXABAN 2.5 MG TABLET (WCH) PO (10:12)
[2024-06-29] MEDS: Torsemide 100 MG Tablet PO (10:12)
[2024-06-29] MEDS: Cholecalciferol (VIT D3) 25 MCG TABLET (1,000 UNITS) PO (10:13)
[2024-06-29] MEDS: Magnesium Chloride 64 MG Delay Rel.Tablet 128 MG PO (10:14)
[2024-06-29] MEDS: Ensure Plus High Protein 120 ML LIQUID PO ×3 (10:34→18:01)
[2024-06-29] MEDS: Menthol/Lanolin/Calamine/Znox 113 GM Tube 1 APPLIC TOPICAL ×2 (10:34→22:51)
[2024-06-29] MEDS: TAFAMIDIS 61 MG CAPSULE PO (10:34)
[2024-06-29 12:03] VITALS: BP 112/67; PULSE 89; RESP 16; TEMP 35.9; O2SAT 94
--- NOTE | 2024-06-29 14:07 | NURSING ---
All care for patient performed in room due to Covid dx.
[2024-06-29] MEDS: Tamsulosin HCl 0.4 MG Capsule PO (18:01)
--- NOTE | 2024-06-30 02:02 | NURSING ---
Patient restless,agitated,paranoid, refused all HS meds, attempting self transfers, difficult to redirect, poor safety awareness, covid positive. 1:1 ineffective, repositioned, toileted per request, fluids offered, television on per preference. Non-pharmacologic interventions ineffective. contacted via telephone, notified of restlessness/confusion/paranoia/agitation/refusal of all HS medication. New order received for IM Ativan 1mg x1, order repeated back.
[2024-06-30] MEDS: LORazepam 2 MG/ML Syringe 1 MG IM (02:56)
[2024-06-30] MEDS: Levothyroxine 125 MCG Tablet PO (10:41)
[2024-06-30] MEDS: Midodrine HCl 5 MG Tablet PO ×3 (10:43→17:26)
[2024-06-30] MEDS: Menthol/Lanolin/Calamine/Znox 113 GM Tube 1 APPLIC TOPICAL ×2 (10:43→22:32)
[2024-06-30] MEDS: Amiodarone 200 MG Tablet PO (10:43)
[2024-06-30] MEDS: dexAMETHasone 4 MG Tablet 6 MG PO (10:44)
[2024-06-30] MEDS: Torsemide 100 MG Tablet PO ×2 (10:45→22:35)
[2024-06-30] MEDS: Escitalopram Oxalate 10 MG Tablet 5 MG PO (10:45)
[2024-06-30] MEDS: APIXABAN 2.5 MG TABLET (WCH) PO ×2 (10:45→22:35)
[2024-06-30] MEDS: Cholecalciferol (VIT D3) 25 MCG TABLET (1,000 UNITS) PO (10:46)
[2024-06-30] MEDS: TAFAMIDIS 61 MG CAPSULE PO (11:08)
[2024-06-30] MEDS: Carbidopa/Levodopa 10/100 Tablet PO ×2 (11:09→17:26)
[2024-06-30] MEDS: Lactulose 20 GM/30 ML UDC PO ×2 (13:25→22:33)
[2024-06-30] MEDS: Potassium Chloride Oral Tablet 20 MEQ 40 MEQ PO ×2 (13:25→22:35)
[2024-06-30] MEDS: Ensure Plus High Protein 120 ML LIQUID PO (13:27)
[2024-06-30 13:49] LABS: Pathologist Review Reviewed
[2024-06-30 16:00] VITALS: BP 108/74; PULSE 81; RESP 20; TEMP 35; O2SAT 100
[2024-06-30] MEDS: Tamsulosin HCl 0.4 MG Capsule PO (17:26)
[2024-06-30 20:00] VITALS: PULSE 80; O2SAT 97
[2024-06-30 22:30] VITALS: BP 111/76; PULSE 80; O2SAT 97
[2024-06-30] MEDS: MELATONIN 3 MG TABLET PO (22:35)
[2024-06-30] MEDS: OLANZapine 5 MG/TAB TAB.RAPDIS 2.5 MG PO (22:36)
[2024-06-30] MEDS: traZODone 50 MG Tablet PO (22:39)
[2024-06-30] MEDS: Acetaminophen 500 MG Tablet 1000 MG PO (22:40)
--- NOTE | 2024-07-01 00:22 | NURSING ---
Patient restless, agitated, and becoming aggressive, Dr. Tompkins paged and updated, New order: Ativan 1mg po q4 hours as needed, order verified by read back and acknowledged.
[2024-07-01] MEDS: LORazepam 1 MG Tablet PO ×2 (00:40→21:39)
--- NOTE | 2024-07-01 02:57 | NURSING ---
Patient resting quietly in bed with HOB elevated, O2 2l/m for comfort, PRN Ativan given earlier is effective at time, alarms and camera maintained for safety, call light with in reach,
--- NOTE | 2024-07-01 03:00 | NURSING ---
All patient care provided in room due to isolation due to COVID +
[2024-07-01] MEDS: Potassium Chloride Oral Tablet 20 MEQ 40 MEQ PO ×3 (05:58→22:33)
[2024-07-01] MEDS: Levothyroxine 125 MCG Tablet PO (05:59)
[2024-07-01] MEDS: Lactulose 20 GM/30 ML UDC PO ×2 (05:59→15:05)
[2024-07-01 06:00] VITALS: BMI 26.2
[2024-07-01] MEDS: Carbidopa/Levodopa 10/100 Tablet PO ×3 (06:00→17:21)
[2024-07-01] MEDS: Torsemide 100 MG Tablet PO ×2 (09:13→22:34)
[2024-07-01] MEDS: Escitalopram Oxalate 10 MG Tablet 5 MG PO (09:13)
[2024-07-01] MEDS: APIXABAN 2.5 MG TABLET (WCH) PO ×2 (09:14→22:33)
[2024-07-01] MEDS: Cholecalciferol (VIT D3) 25 MCG TABLET (1,000 UNITS) PO (09:14)
[2024-07-01] MEDS: Magnesium Chloride 64 MG Delay Rel.Tablet 128 MG PO (09:14)
[2024-07-01] MEDS: dexAMETHasone 4 MG Tablet 6 MG PO (09:15)
[2024-07-01] MEDS: Menthol/Lanolin/Calamine/Znox 113 GM Tube 1 APPLIC TOPICAL ×2 (09:16→22:39)
[2024-07-01] MEDS: Amiodarone 200 MG Tablet PO (09:16)
[2024-07-01] MEDS: Ensure Plus High Protein 120 ML LIQUID PO ×3 (09:16→17:21)
[2024-07-01] MEDS: Midodrine HCl 5 MG Tablet PO ×3 (09:16→17:21)
[2024-07-01 10:35] VITALS: BP 126/74; PULSE 104; RESP 14; TEMP 35.6; O2SAT 98
[2024-07-01 12:18] VITALS: BP 96/64; PULSE 79
[2024-07-01] MEDS: Tamsulosin HCl 0.4 MG Capsule PO (17:21)
[2024-07-01 17:32] VITALS: BP 110/82; PULSE 82
--- NOTE | 2024-07-01 21:44 | NURSING ---
Patient's daughter noted out of room with isolation attire on, reminded visitor that isolation attire can not be worn out of room, vistor appoligized and voiced understanding.
[2024-07-01] MEDS: MELATONIN 3 MG TABLET PO (22:34)
[2024-07-01] MEDS: OLANZapine 5 MG/TAB TAB.RAPDIS 2.5 MG PO (22:35)
[2024-07-01] MEDS: Acetaminophen 500 MG Tablet 1000 MG PO (23:00)
[2024-07-01] MEDS: traZODone 50 MG Tablet PO (23:00)
[2024-07-01 23:12] VITALS: BP 107/64; PULSE 80; O2SAT 99
--- NOTE | 2024-07-01 23:47 | NURSING ---
Patient with increased agitation with staff assisting legs back into bed for safety, after patient repeatedly kicks legs out of bed and tries to get out of bed, patient's daughter in room. 1:1, redirection, fluids, change position, adjust room temp, interventions ineffective. PRN Ativan given at 2138.
--- NOTE | 2024-07-02 01:13 | NURSING ---
All patient care provided in room due to isolation due to COVID +
[2024-07-02] MEDS: LORazepam 1 MG Tablet PO (02:06)
--- NOTE | 2024-07-02 02:20 | NURSING ---
Patient restless and throwing legs out of bed, agitation and aggression when staff assist legs back into bed for safety, removing gown, 1:1, redirection, toileting, fluids, change position, change room temp, ineffective, PRN Ativan given.
--- NOTE | 2024-07-02 05:50 | NURSING ---
Patient refused AM meds, turned head and pushed meds away.
[2024-07-02] MEDS: Midodrine HCl 5 MG Tablet PO (08:09)
[2024-07-02] MEDS: Escitalopram Oxalate 10 MG Tablet 5 MG PO (08:11)
[2024-07-02] MEDS: Cholecalciferol (VIT D3) 25 MCG TABLET (1,000 UNITS) PO (08:11)
[2024-07-02] MEDS: Amiodarone 200 MG Tablet PO (08:11)
[2024-07-02] MEDS: APIXABAN 2.5 MG TABLET (WCH) PO (08:12)
[2024-07-02] MEDS: Magnesium Chloride 64 MG Delay Rel.Tablet 128 MG PO (08:12)
[2024-07-02] MEDS: dexAMETHasone 4 MG Tablet 6 MG PO (08:13)
[2024-07-02] MEDS: Torsemide 100 MG Tablet PO (08:13)
[2024-07-02] MEDS: Menthol/Lanolin/Calamine/Znox 113 GM Tube 1 APPLIC TOPICAL ×2 (08:20→22:56)
[2024-07-02] MEDS: Ensure Plus High Protein 120 ML LIQUID PO (08:20)
[2024-07-02 09:00] VITALS: BP 115/68; PULSE 79; RESP 18; TEMP 36; O2SAT 98
[2024-07-02 10:00] VITALS: O2SAT 98
--- NOTE | 2024-07-02 14:40 | CASEMGMT ---
Addendum entered by Betzy Amezquita 07/02/24 15:42: [facility] confirmed they cannot accept until pt is OOI on 07/09. Dr. Tompkins started morphine. SW updated and educated to skilling for end-of-life and COVID, thus, therapy and extreme medical interventions will stop. appreciative. SW to refer to [facility] and will schedule transport closer to MT date. PASRR submitted. Plan: MT 07/09 to [facility], intermediate, private pay with [facility] Betzy Amezquita, ROSE CHERRY Original Note: Social Work requested to speak with this worker. explained pt is declining, exhibiting signs of terminal agitation and restlessness, unable to get comfortable, not being lucid and able to express thoughts. SW offered to pursue hospice services. and dtrs agreed. prefers pt return to [facility], vs [facility], and at [facility]. SW offered to contact [facility] to inquire about acceptance while still in isolation period. Second choice would be [facility]. appreciative. SW updated Dr. Tompkins. Messaged [facility] via [employer] with update and inquiry. Will await response. ROSE Kelley
[2024-07-02] MEDS: morphine (oral solution) 10MG/0.5ML Syringe 10 MG SL/PO ×5 (15:27→23:01)
[2024-07-02] MEDS: ALPRAZolam 0.5 MG Tablet 1 MG PO (15:50)
[2024-07-02] MEDS: Tamsulosin HCl 0.4 MG Capsule PO (15:51)
[2024-07-02] MEDS: Carbidopa/Levodopa 10/100 Tablet PO (15:51)
--- NOTE | 2024-07-02 18:23 | NURSING ---
All care and therapy performed in patient's room today due to Covid isolation precautions.
--- NOTE | 2024-07-02 20:24 | NURSING ---
Patient very restless today. spoke with Betzy and Dr. Tompkins regarding patient's current decline. New orders received. Family receptive of end of life care. Will continue to monitor.
--- NOTE | 2024-07-02 21:48 | DS.PCM_ITS ---
Providers Date of Admission: 06/14/24 Primary Care Physician: Dr. 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 - Organ-limited amyloidosis; I43 - Cardiomyopathy in diseases classified elsewhere (6) Coronary artery disease: Status: Acute Code(s): I25.10 - Atherosclerotic heart disease of [place] coronary artery without angina pectoris (7) Diaphragmatic paralysis: Status: Acute Code(s): J98.6 - Disorders of diaphragm (8) Atrial fibrillation: Status: Acute Code(s): I48.91 - Unspecified atrial fibrillation (9) Complete heart block: Status: Acute Code(s): I44.2 - Atrioventricular block, complete (10) Chronic kidney disease, stage 3b: Status: Acute Code(s): N18.32 - Chronic kidney disease, stage 3b (11) Hypothyroidism: Status: Acute Code(s): E03.9 - Hypothyroidism, unspecified Plan 88 year old male with below past medical history hospitalized for acute respiratory failure with hypoxia 2/2 acute on chronic hfref, complicated by acute kidney injury, admitted to TCU with debility, here for rehabilitation, strengthening, prior to discharge home with . * Debility - PT/OT. * Cognition - ST. * Pain - Tylenol 1000mg q6 prn pain (1-10). * Bowel - senna/colace 1 tablet bid, Magnesium citrate 300ml po daily prn. * Adult immunization - Administer pneumonia vaccine, covid vaccine, flu vaccine as appropriate. * DVT prophylaxis - Eliquis 2.5mg bid. * Atrial fibrillation - Amiodarone 200mg daily, Eliquis 2.5mg bid. * Vitamin D deficiency - D3 25mcg daily. * Depression - Lexapro 10mg daily. * Hypothyroidism - Levothyroxine 125mcg daily. * Hypomagnesemia - Magnesium chloride 128mg daily. * Insomnia - Melatonin 3mg qhs, Zyprexa 5mg qhs, Trazodone 100mg qhs, stable chronic half-way use, GDR not recommended. * Orthostatic hypotension - Midodrine 5mg tidcm. * Coronary artery disease - NTG 0.4mg sl q5m prn. * Hypokalemia - KCL 10meq daily. * Cardiac amyloidosis - Vyndamax 61mg daily. * BPH - Tamsulosin 0.4mg daily. * HFrEF - Torsemide 100mg bid. Hospital Course Operations None Procedures None Summary of Care Provided Minutes Spent on Discharge: 35 Hospital Course: 88 year old male with below past medical history hospitalized for acute respiratory failure with hypoxia 2/2 acute on chronic hfref, complicated by acute kidney injury, admitted to TCU with debility, here for rehabilitation, strengthening, prior to discharge home with . 06/28/2024 +covid-19. 07/02/2024 Resident dying. Discharge 07/09/2024 to [facility], [facility], private pay with [facility]. Physical Exam Const alert General Appearance: cooperative HEENT normocephalic Eyes PERRL and EOMs intact bilaterally Neck supple, no JVD and no carotid bruits Resp normal respiratory effort, normal air movement and clear to auscultation bilaterally Cardio regular rate and regular rhythm GI normal to inspection, nondistended, normoactive bowel sounds, non-tender and non-distended Extremity normal capillary refill General Extremity: Negative for edema Skin no rashes or lesions noted General Skin Exam: no breakdown Psych affect normal Appearance: appropriate Medical Records Data Medical Nutrition Assessment Dietitian: Malnutrition Criteria Met Start: 06/23/24 15:13 Freq: Status: Active Protocol: Document 06/23/24 15:13 TAMI (Rec: 06/23/24 15:13 TAMI 25.7) Nutrition Malnutrition Evidence of Malnutrition Exists Yes Malnutrition (severe): Acute Illness/Injury Evidenced By Suboptimal Energy Intake ( Severe),Weight Loss (Severe) Intake Problem Decreased Nutrient Needs (specify) Status Inactive Problem Inadequate Oral Intake Status Inactive Problem Clinical Problem Biting/Chewing Difficulty Etiology swallowing related to issues with dysphagia Signs/Symptoms as evidenced by need of mech altered diet consistency Status Active Problem Acute Disease or Injury Related Malnutrition Etiology related to confusion/lethargy and inadequate energy intake Signs/Symptoms as evidenced by 3.2% unintended wt loss x ~ 1 wk and po intake meeting <50% of est nutritional needs Status Active Problem Recommendation Dietitian Recommendations/Changes Will liberalize diet to liberal Regular - consistency per COMPUTER SECURITY SPECIALIST - d/t signs and symptoms of malnutrition Will provide fruit pie and ice cream w/ lunch and dinner for increased nutrition if consumed per family request. Continue Ensure Plus High Protein tid w/ medpass Rec appetite stimulant to help encourage increased po intake at meals Rec consider supplemental nutrition support if in accordance w/ res/family wishes to help prevent additional decrease in res nutritional status Weight / BMI Weight Weight: 85.411 kg Body Mass Index (BMI) 26.2 ABG / Lab / Microbiology Data 06/29/24 05:20 06/29/24 05:20 Microbiology: Microbiology 06/28/24 10:05 Nasal Secretion SARS-CoV-2 Antigen (Rapid) - Final SARS-CoV-2 (COVID 19) 06/15/24 11:00 Urine, Clean Catch Urine Culture - Final Pseudomonas fluorescens D/C Instructions Discharge Diet: No restrictions Discharge Activity: Return to Normal Activity Weight Bearing Status: Weight bearing as tolerated Additional Instructions: Discharge 07/09/2024 to [facility], private pay with [facility]. Please Follow Up With: mary Bradshaw MD When: As needed. Meaningful Use Info Meaningful Use Meaningful Use Diagnoses (Choose all that apply): None applicable Ischemic Stroke Statin Dosing Therapy Reference: STATIN DOSE THERAPY REFERENCE: * Patients > 75 years receive moderate or high dose statin therapy. * Patients 75 years or YOUNGER should receive HIGH intensity statin dose unless contraindicated. You will be required to document reason for non-treatment if statin daily dose does not meet guidelines. HIGH DOSE STATIN THERAPY DAILY Atorvastatin > than or = to 40 mg Rosuvastatin > than or = to 20 mg Amlodipine + Atorvastatin > than or = to 2.5/40 mg Ezetimibe + Simvastatin 10/80 mg Simvastatin 80mg Discharge Plan Admission Admit Date/Time: 06/14/24 18:22 Primary Reason for Your Visit: Debility. Attending Provider: Alfonso Tompkins Chi Primary Care Provider: Augustine Giles Instructions Additional Instructions / Restrictions: Discharge 07/09/2024 to [facility], [facility], private pay with [facility]. Discharge Orders/Prescriptions Prescriptions: Discontinued miconazole-tolnaftate 2-1 % kit 1 ea topical BID.TCU Patient Comments: affected areas Rx Instructions: apply KETOCONAZOLE twice daily midodrine 5 mg tablet 5 mg PO TID Rx Instructions: do not give last dose of day after 6PM or within 4 hrs of bedtime olanzapine 5 mg tablet 5 mg PO QHS tamsulosin [Flomax] 0.4 mg capsule 0.4 mg PO DAILY trazodone 100 mg tablet 100 mg PO QHS acetaminophen 500 mg tablet 500 mg PO Q6H PRN (Reason: fever or pain) amiodarone 200 mg tablet 200 mg PO Q24H Eliquis 2.5 mg tablet 2.5 mg PO BID cholecalciferol (vitamin D3) 25 mcg (1,000 unit) capsule 25 mcg PO DAILY coenzyme Q10 [Co Q-10] 200 mg capsule 200 mg PO DAILY escitalopram oxalate 10 mg tablet 10 mg PO DAILY potassium chloride [Klor-Con 10] 10 mEq tablet extended release 10 meq PO DAILY levothyroxine 125 mcg tablet 125 mcg PO DAILY magnesium oxide 400 mg magnesium tablet 400 mg PO DAILY melatonin 3 mg tablet 3 mg PO QHS nitroglycerin [Nitrostat] 0.4 mg tablet, sublingual 0.4 mg sublingual Q5M PRN (Reason: angina) Rx Instructions: do not exceed 3 doses per episode Vyndamax 61 mg capsule 61 mg PO DAILY Patient Comments: family to provide torsemide 100 mg tablet 100 mg PO BID Referrals / Follow Up: Augustine Giles MD [Primary Care Provider] - Disposition Disposition (needs filled in before D/C Order can be placed): Hospice in Medical Facility
--- NOTE | 2024-07-02 21:55 | TREXTCAR_ITS ---
Diet Diet Order/Speech Therapy: 06/23/24 14:56 Diet: Regular - General Dietary Modifications:: Sodium Restricted Diet Comments: fruit pie (preferably wagner) w/ ice cream at lunch and dinner Routine Orders/Code Status [facility]) Bilat Knees: Wound Type: Abrasion Right Forearm: Wound Type: Abrasion Right Wrist: Wound Type: Abrasion Left wrist: Wound Type: Skin Tear Dressing Change: Dry Sterile Dressing Therapies Weight Bearing: Weight bearing as tolerated Extremity Affected:: Bilateral Lower Problem/Diagnosis (1) Debility: Status: Acute Code(s): R53.81 - Other malaise (2) Acute respiratory failure with hypoxia: Status: Acute Code(s): J96.01 - Acute respiratory failure with hypoxia (3) Acute on chronic HFrEF (heart failure with reduced ejection fraction): Status: Chronic Code(s): I50.23 - Acute on chronic systolic (congestive) heart failure (4) Localized swelling of both lower legs: Status: Acute Code(s): R22.43 - Localized swelling, mass and lump, lower limb, bilateral (5) Cardiac amyloidosis: Status: Acute Code(s): 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.4 - Organ-limited amyloidosis; I43 - Cardiomyopathy in diseases classified elsewhere (6) Coronary artery disease: Status: Acute Code(s): I25.10 - Atherosclerotic heart disease of [place] coronary artery without angina pectoris (7) Diaphragmatic paralysis: Status: Acute Code(s): J98.6 - Disorders of diaphragm (8) Atrial fibrillation: Status: Acute Code(s): I48.91 - Unspecified atrial fibrillation (9) Complete heart block: Status: Acute Code(s): I44.2 - Atrioventricular block, complete (10) Chronic kidney disease, stage 3b: Status: Acute Code(s): N18.32 - Chronic kidney disease, stage 3b (11) Hypothyroidism: Status: Acute Code(s): E03.9 - Hypothyroidism, unspecified Plan 88 year old male with below past medical history hospitalized for acute respiratory failure with hypoxia 2/2 acute on chronic hfref, complicated by acute kidney injury, admitted to TCU with debility, here for rehabilitation, strengthening, prior to discharge home with . * Debility - PT/OT. * Cognition - ST. * Pain - Tylenol 1000mg q6 prn pain (1-10). * Bowel - senna/colace 1 tablet bid, Magnesium citrate 300ml po daily prn. * Adult immunization - Administer pneumonia vaccine, covid vaccine, flu vaccine as appropriate. * DVT prophylaxis - Eliquis 2.5mg bid. * Atrial fibrillation - Amiodarone 200mg daily, Eliquis 2.5mg bid. * Vitamin D deficiency - D3 25mcg daily. * Depression - Lexapro 10mg daily. * Hypothyroidism - Levothyroxine 125mcg daily. * Hypomagnesemia - Magnesium chloride 128mg daily. * Insomnia - Melatonin 3mg qhs, Zyprexa 5mg qhs, Trazodone 100mg qhs, stable chronic penitentiary use, GDR not recommended. * Orthostatic hypotension - Midodrine 5mg tidcm. * Coronary artery disease - NTG 0.4mg sl q5m prn. * Hypokalemia - KCL 10meq daily. * Cardiac amyloidosis - Vyndamax 61mg daily. * BPH - Tamsulosin 0.4mg daily. * HFrEF - Torsemide 100mg bid. Allergies/Procedures Done in Hospital Allergies hydromorphone (From Dilaudid) Allergy (Severe, Verified 06/14/24 18:52) Other tachycardia, diaphoresis, flushing, intense anxiety ketorolac Allergy (Severe, Verified 06/14/24 18:52) Anaphylaxis Procedures: None Type of Care/Length of Stay Estimated LOS: More Than 30 Days Type of Care Needed: Intermediate Rehab Potential: Poor Prognosis: Poor Additional Orders/Day of Discharge Day of Discharge: 07/09/24 Dietary and Speech Recommendations Dietitian Recommendations/Changes: Will continue Regular Sodium Restricted diet per MD orders - consistency per SUPERVISOR SANDBLASTER Continue to provide fruit pie and ice cream w/ lunch and dinner for increased nutrition if consumed per family request. Continue Ensure Plus High Protein tid w/ medpass Rec appetite stimulant to help encourage increased po intake at meals Follow Up Care Please Follow Up With: mary Bradshaw MD When: after d/c from TCU Please Follow Up With: morgan bowman MD When: within 1 week Please Follow Up With: mary aldrich MD When: within 1 week Please Follow Up With: mario chavira APRN PRINTING EQUIPMENT MECHANIC APPRENTICE When: within 1 week Please Follow Up With: Salupo,Charles Please Follow Up With: Lissett Iyer Discharge Plan Admission Admit Date/Time: 06/14/24 18:22 Primary Reason for Your Visit: Debility. Attending Provider: Alfonso Tompkins Chi Primary Care Provider: Augustine Giles Instructions Additional Instructions / Restrictions: Discharge 07/09/2024 to [facility], [facility], private pay with [facility]. Discharge Orders/Prescriptions Prescriptions: Discontinued miconazole-tolnaftate 2-1 % kit 1 ea topical BID.TCU Patient Comments: affected areas Rx Instructions: apply KETOCONAZOLE twice daily midodrine 5 mg tablet 5 mg PO TID Rx Instructions: do not give last dose of day after 6PM or within 4 hrs of bedtime olanzapine 5 mg tablet 5 mg PO QHS tamsulosin [Flomax] 0.4 mg capsule 0.4 mg PO DAILY trazodone 100 mg tablet 100 mg PO QHS acetaminophen 500 mg tablet 500 mg PO Q6H PRN (Reason: fever or pain) amiodarone 200 mg tablet 200 mg PO Q24H Eliquis 2.5 mg tablet 2.5 mg PO BID cholecalciferol (vitamin D3) 25 mcg (1,000 unit) capsule 25 mcg PO DAILY coenzyme Q10 [Co Q-10] 200 mg capsule 200 mg PO DAILY escitalopram oxalate 10 mg tablet 10 mg PO DAILY potassium chloride [Klor-Con 10] 10 mEq tablet extended release 10 meq PO DAILY levothyroxine 125 mcg tablet 125 mcg PO DAILY magnesium oxide 400 mg magnesium tablet 400 mg PO DAILY melatonin 3 mg tablet 3 mg PO QHS nitroglycerin [Nitrostat] 0.4 mg tablet, sublingual 0.4 mg sublingual Q5M PRN (Reason: angina) Rx Instructions: do not exceed 3 doses per episode Vyndamax 61 mg capsule 61 mg PO DAILY Patient Comments: family to provide torsemide 100 mg tablet 100 mg PO BID Referrals / Follow Up: Augustine Giles MD [Primary Care Provider] - Disposition Disposition (needs filled in before D/C Order can be placed): Hospice in Medical Facility
[2024-07-02 22:55] VITALS: BP 103/64; PULSE 82; O2SAT 88
[2024-07-02 23:05] VITALS: BP 103/64; PULSE 82; O2SAT 95
[2024-07-03] MEDS: morphine (oral solution) 10MG/0.5ML Syringe 10 MG SL/PO ×4 (01:26→06:48)
[2024-07-03] MEDS: Atropine Sulfate 1% 2 ml Bottle 4 DRP PO (04:04)
[2024-07-03 05:07] VITALS: O2SAT 85
[2024-07-03] MEDS: ALPRAZolam 0.5 MG Tablet 1 MG PO (05:10)
[2024-07-03 05:16] VITALS: BP 110/65; PULSE 85; RESP 12; TEMP 36.1; O2SAT 93
[2024-07-03 07:58] VITALS: BP 104/62; RESP 5; O2SAT 90
--- NOTE | 2024-07-03 08:00 | NURSING ---
called and notified of patient decreased LOC and vital signs.
[2024-07-03 10:27] VITALS: BP 65/47; PULSE 80; RESP 8; O2SAT 77
--- NOTE | 2024-07-03 11:55 | NURSING ---
Patint . Day and time of 07/03/[address] Tompkins made aware. Family was at beside at time of .
== END 2024-07-03 10:57 | DRG 291 ==
PROVIDERS: Internal Medicine; Admitting Provider Family Medicine Geriatric Medicine; PCP Family Medicine; Visit Provider Family Medicine Geriatric Medicine
DX: I50.23 Acute on chronic systolic (congestive) heart failure (principal); U07.1 COVID-19; J96.00 Acute respiratory failure, unspecified whether with hypoxia or hypercapnia; I44.2 Atrioventricular block, complete; E44.0 Moderate protein-calorie malnutrition; E85.4 Organ-limited amyloidosis; I43 Cardiomyopathy in diseases classified elsewhere; N39.0 Urinary tract infection, site not specified; I48.91 Unspecified atrial fibrillation; N18.32 Chronic kidney disease, stage 3b; G20.A1 Parkinson's disease without dyskinesia, without mention of fluctuations; E03.9 Hypothyroidism, unspecified; F32.A Depression, unspecified; E55.9 Vitamin D deficiency, unspecified; I25.10 Atherosclerotic heart disease of native coronary artery without angina pectoris; I95.1 Orthostatic hypotension; E87.6 Hypokalemia; K58.1 Irritable bowel syndrome with constipation; F41.9 Anxiety disorder, unspecified; J98.6 Disorders of diaphragm; Z79.01 Long term (current) use of anticoagulants; Z79.899 Other long term (current) drug therapy; Z79.890 Hormone replacement therapy; N40.0 Benign prostatic hyperplasia without lower urinary tract symptoms; R22.43 Localized swelling, mass and lump, lower limb, bilateral; B96.5 Pseudomonas (aeruginosa) (mallei) (pseudomallei) as the cause of diseases classified elsewhere; Z68.26 Body mass index [BMI] 26.0-26.9, adult
CPT/HCPCS: 36415; 71046; 74018; 74230; 80048; 81001; 82533; 83735; 83880; 84132; 85025; 87077; 87086; 87088; 87184; 87186; 87426; 92526; 92610; 92611; 97110; 97116; 97162; 97166; 97530; 97535; 97802; J2185; J7030; J7050; A4216; J1940

== ENCOUNTER → 2024-06-19 | Outpatient (CLI) | payer MEDICARE, OTHER, SELFPAY ==
--- NOTE | 2024-06-19 12:39 | CT_ITS ---
HISTORY: Abdominal pain. TECHNIQUE: Helically acquired images were obtained of the abdomen and pelvis after the intravenous administration of 100 mL Isovue-370. Oral contrast also administered.. A radiation dose optimization technique was used for this scan. 602 images. COMPARISON: XR 06/17/2024. FINDINGS: LOWER CHEST: Cardiomegaly with pacemaker and midline sternotomy noted. Mild bilateral pleural effusions with lower lobe atelectasis. BOWEL: Bowel including appendix nondilated. Colonic diverticulosis without focal pericolonic inflammation. Rectosigmoid anastomosis present. Moderate stool in the rectum with mild perirectal edema. PERITONEUM: Mild ascites. LIVER: 17 cm in length. 7 mm cyst in the left lobe. GALLBLADDER/BILIARY TREE: Multiple calcified gallstones with sludge. SPLEEN: 14 cm in length. PANCREAS: Homogeneous and nonenlarged. ADRENAL GLANDS: Stable 2 cm left adrenal nodule; follow-up not indicated. KIDNEYS: No hydronephrosis. Small bilateral cysts; follow-up is not indicated. VESSELS: No abdominal aortic aneurysm. Atherosclerosis of the abdominal aorta and its major branches. PELVIC ORGANS: Surgical clips likely related to prostatectomy. Penile pump reservoir above the bladder. ABDOMINAL WALL: Mild ascites extends into the fat-containing left inguinal hernia with a penile pump catheter noted. Subcutaneous edema. BONES: Degenerative change. Bilateral hip arthroplasties in place. CT/Abdomen/Pelvis WITH Contrast IMPRESSION: Anasarca with mild pleural effusions and ascites. Moderate stool in the rectum with mild perirectal edema or bronchitis. Colonic diverticulosis without acute diverticulitis. Cholelithiasis and biliary sludge. Mild hepatosplenomegaly. Postoperative changes in the pelvis. Electronically Signed: Treasure Bravo MD at 15:55 EDT ,
== END | disposition home or self-care (01) ==
LOC: CT 12:33
PROVIDERS: PCP Family Medicine; Referring Provider Family Medicine Geriatric Medicine; Visit Provider Family Medicine Geriatric Medicine
DX: R10.9 Unspecified abdominal pain (principal)
CPT/HCPCS: 74177; Q9967; A4216